=== PATIENT | female | born 1995 | race Caucasian/White ===

== ENCOUNTER 2022-08-31 16:35 | Outpatient (CLI) | payer BC, SELFPAY ==
[2022-09-07 20:53] LABS: Progesterone 9.7 ng/mL (***)
== END 2022-08-31 16:36 | disposition home or self-care (01) ==
PROVIDERS: PCP Pediatrics; Visit Provider Obstetrics & Gynecology
DX: O20.0 Threatened abortion (principal); Z3A.00 Weeks of gestation of pregnancy not specified
CPT/HCPCS: 36415; 84144; 84702; 85461

== ENCOUNTER 2022-09-02 11:12 | Outpatient (CLI) | payer BC, SELFPAY | END 2022-09-02 11:13 | disposition home or self-care (01) | LOC: ANHLAB 11:14 | PROVIDERS: PCP Internal Medicine; Visit Provider Obstetrics & Gynecology | DX: O20.0 Threatened abortion (principal) | CPT/HCPCS: 36415; 84702 ==

== ENCOUNTER 2022-09-07 06:44 | Emergency (ER) | payer BC, SELFPAY ==
--- NOTE | ~2022-09-07 | US_ITS ---
EXAMINATION: US OB <= 14 weeks fetus DATE: 09/07/2022 08:52 INDICATION: Vaginal bleeding and cramping TECHNIQUE: Real-time transabdominal and transvaginal obstetric ultrasound. FINDINGS: No prior studies for comparison. The uterus measures 8.6 x 4.1 x 5 cm. There is an intrauterine gestational sac, with pole ident ified. The crown rump length measures 0.58 cm, which correlates with a estimated gestational age of 6 weeks 3 days. heart tones are identified measuring 113 BPM. There is a left ovarian cyst me asuring 4.4 x 3.7 x 3.9 cm. IMPRESSION: 1. SL IUP with an EGA of 6 weeks, 3 days (EDC by current ultrasound of 04/30/2023). 2: Left ovarian cyst measuring 4.4 cm. Reviewed, dictated and finalized at location B. IMPRESSION: 1. SL IUP with an EGA of 6 weeks, 3 days (EDC by current ultrasound of 3). 2: Left ovarian cyst measuring 4.4 cm.
[2022-09-07 06:53] VITALS: BP 110/76; PULSE 77; RESP 16; TEMP 36.4; O2SAT 100
--- NOTE | 2022-09-07 07:42 | ED.FEMALEGU ---
HPI - Female Genitourinary General Chief complaint: Vaginal Bleeding Stated complaint: /vaginal bleeding Time Seen by Provider: 09/07/22 07:41 Source: patient Mode of arrival: ambulatory Limitations: no limitations History of Present Illness HPI Narrative: 26 years old white female one 0%0 woke up this morning at 5 AM with heavy vaginal bleeding with lower abdominal cramps. She denies any fever, chills, nausea, vomiting. Also denies any lightheadedness or dizziness Related Data Home Medications Medication Instructions Recorded Confirmed loratadine 10 mg tablet (Claritin) 10 mg PO DAILY 09/07/22 09/07/22 vits no.126-ferrous fum tablet 09/07/22 28 mg iron-folic acid 800 mcg tablet (Classic ) Allergies Allergy/AdvReac Type Severity Reaction Status Date / Time No Known Allergies Allergy Verified 09/07/22 07:55 Review of Systems Review of Systems: All systems reviewed & are unremarkable except as noted in HPI and below PMFSH Social History Social History Smoking status: Smoker, status unknown Alcohol intake: never Exam Narrative: General appearance: Well-developed, well-nourished Skin: Normal color Head: Normocephalic, nontraumatic Eyes: Clear conjunctiva ENT: Oropharynx normal, ears normal, nose normal Neck: Supple, nontender Chest and respiratory: Airway patent, no respiratory distress, no accessory muscle use Heart: Regular rate/rhythm Abdomen: Soft, mild diffuse tenderness, no organomegaly, quiet bowel sounds Vascular: Normal peripheral pulses, normal capillary refill. 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 Martinez Date: 09/07/22 Time: 10:07 Vital Signs Vital signs: Vital Signs Temperature 36.4 C L 09/07/22 06:53 Pulse Rate 77 09/07/22 06:53 Respiratory Rate 16 09/07/22 06:53 Blood Pressure 110/76 09/07/22 06:53 Pulse Oximetry 100 09/07/22 06:53 Oxygen Delivery Room Air 09/07/22 06:53 Temperature 36.4 C L 09/07/22 06:53 Pulse Rate 75 09/07/22 07:59 Respiratory Rate 16 09/07/22 06:53 Blood Pressure 115/78 09/07/22 07:59 Pulse Oximetry 100 09/07/22 06:53 Oxygen Delivery Room Air 09/07/22 06:53 MDM - Female Genitourinary Differential Diagnosis Differential diagnosis: Likely other (Threatened , complete , incomplete ) Lab Data Result diagrams: 09/07/22 07:51 Labs: Lab Results 09/07/22 09/07/22 Range/Units 07:51 07:51 WBC 6.2 (4.5-10.0) K/mm3 RBC 4.50 (4.2-5.4) M/mm3 Hgb 13.6 (12.0-15.0) g/dL Hct 40.2 (37.0-47.0) % MCV 89.3 (80-100) fl MCH 30.2 (26-34) pg MCHC 33.8 (32-36) g/dl RDW 11.9 (11.5-14.5) % Plt Count 191 (150-375) k/mm3 MPV 10.2 (7.4-10.4) fl Immature Gran % (Auto) 0.2 (0-0.5) % Neut % (Auto) 49.4 (45.5-73.1) % Lymph % (Auto) 38.1 (18.3-44.2) % [place] % (Auto) 9.6 H (2.6-8.5) % Eos % (Auto) 2.1 (0-4.4) % Baso % (Auto) 0.6 (0.2-1.2) % Lymph # (Auto) 2.35 (0.9-3.2) K/mm3 [place] # (Auto) 0.6 (0.1-0.6) K/mm3 Eos # (Auto) 0.1 (0-0.3) K/mm3 Baso # (Auto) 0.0 (0.0-0.1) K/mm3 Abs Immat Gran (auto) 0.01 (0.00-0.031) K/mm3 Absolute Neuts (auto) 3.1 (1.3-6.7) K/mm3 Absolute Nu
[2022-09-07 07:58] VITALS: BP 100/65; PULSE 59
[2022-09-07 07:59] VITALS: BP 104/71; BP 115/78; PULSE 66; PULSE 75
[2022-09-07] MEDS: SODIUM CHLORIDE 0.9% IV 1,000 ML 999 ML IV CONT (08:00)
[2022-09-07 08:01] LABS: Basophils Percent Auto 0.6 % (0.2-1.2); Eosinophils Absolute Auto 0.1 K/mm3 (0-0.3); Eosinophils Percent Auto 2.1 % (0-4.4); Hematocrit 40.2 % (37.0-47.0); Hemoglobin 13.6 g/dL (12.0-15.0); Immature Granulocyte Absolute 0.01 K/mm3 (0.00-0.031); Immature Granulocyte Percent A 0.2 % (0-0.5); Lymphocytes Absolute Auto 2.35 K/mm3 (0.9-3.2); Lymphocytes Percent Auto 38.1 % (18.3-44.2); Mean Corpuscular HGB Conc 33.8 g/dl (32-36); Mean Corpuscular Hemoglobin 30.2 pg (26-34); Mean Corpuscular Volume 89.3 fl (80-100); Mean Platelet Volume 10.2 fl (7.4-10.4); Monocytes Absolute Auto 0.6 K/mm3 (0.1-0.6); Monocytes Percent Auto 9.6 % (2.6-8.5); Neutrophils Absolute Auto 3.1 K/mm3 (1.3-6.7); Neutrophils Percent Auto 49.4 % (45.5-73.1); Platelet Count Result 191 k/mm3 (150-375); Red Cell Distribution Width 11.9 % (11.5-14.5); White Blood Count 6.2 K/mm3 (4.5-10.0)
[2022-09-07 10:20] VITALS: BP 126/73; PULSE 70; RESP 16; O2SAT 99
== END 2022-09-07 10:20 | disposition home or self-care (01) ==
PROVIDERS: Emergency Medicine; Emergency Provider Emergency Medicine; PCP Internal Medicine
DX: O20.0 Threatened abortion (principal); O34.81 Maternal care for other abnormalities of pelvic organs, first trimester; N83.202 Unspecified ovarian cyst, left side; Z3A.01 Less than 8 weeks gestation of pregnancy
CPT/HCPCS: 36415; 76801; 84702; 85025; 85461; 86850; 86900; 86901; 96360; 99284; J7030

== ENCOUNTER 2023-04-12 19:48 | Observation (INO) | payer BC, SELFPAY ==
[2023-04-12 21:30] VITALS: BMI 36.1
--- NOTE | 2023-04-12 21:30 | OBADM ---
This patient, Monika Weaver, admitted to the OB room Labor/Delivery/Recovery 106 for observation. Patient/family oriented to hospital policies and general routines including ID bracelet, bed and alarms, visiting hours, pain management, procedures, bathroom and other care routines, personal items, smoking policy, room service/diet, and visiting hours. Patient/Family are encouraged to report perceived risks to care and to ask questions if they do not understand what they are told or what they should do.
--- NOTE | 2023-05-10 22:16 | PM.OBTRLD ---
OB - Triage/Final Diagnosis Visit Information Comments/Additional reasons for admission: I have assessed the risk for this patient, Monika Mcpherson Meg, and determined that she would benefit from observation care. Final Diagnosis (1) False labor: Code(s): O47.9 - False labor, unspecified Status: Acute
== END 2023-04-12 21:40 | disposition home or self-care (01) ==
PROVIDERS: Admitting Provider Obstetrics & Gynecology; PCP Physician Assistant Medical; Visit Provider Obstetrics & Gynecology
DX: O47.1 False labor at or after 37 completed weeks of gestation (principal); Z3A.37 37 weeks gestation of pregnancy
CPT/HCPCS: G0378; G0379

== ENCOUNTER 2023-04-22 01:14 | Inpatient (IN) | payer BC, SELFPAY ==
[2023-04-22] VITALS (63 sets, daily range): BP systolic 83–141; BP diastolic 50–102; PULSE 61–169; RESP 15–16; TEMP 36.6–38; O2SAT 97–100; BMI 36.7
--- NOTE | 2023-04-22 05:58 | LDADM ---
This patient, Monika Weaver, was admitted to Labor/Delivery/Recovery 105 on 04/22/23 at 01:14. Plans for labor, pain management and were discussed with patient. Patient/family oriented to hospital policies and general routines including ID bracelet, bed and alarms, visiting hours, pain management, procedures, bathroom and other care routines, personal items, smoking policy, room service/diet and guest tray routines, security routines, and visiting hours. Patient/Family are encouraged to report perceived risks to care and to ask questions if they do not understand what they are told or what they should do. See OBIX for further documentation.
[2023-04-22 06:17] LABS: Basophils Percent Auto 0.3 % (0.2-1.2); Eosinophils Absolute Auto 0.3 K/mm3 (0-0.3); Eosinophils Percent Auto 2.5 % (0-4.4); Hemoglobin 11.4 g/dL (12.0-15.0); Immature Granulocyte Absolute 0.08 K/mm3 (0.00-0.031); Immature Granulocyte Percent A 0.7 % (0-0.5); Lymphocytes Absolute Auto 3.43 K/mm3 (0.9-3.2); Lymphocytes Percent Auto 28.5 % (18.3-44.2); Mean Corpuscular HGB Conc 33.5 g/dl (32-36); Mean Corpuscular Hemoglobin 30.7 pg (26-34); Mean Corpuscular Volume 91.6 fl (80-100); Mean Platelet Volume 10.9 fl (7.4-10.4); Monocytes Absolute Auto 1.1 K/mm3 (0.1-0.6); Monocytes Percent Auto 8.7 % (2.6-8.5); Neutrophils Absolute Auto 7.1 K/mm3 (1.3-6.7); Neutrophils Percent Auto 59.3 % (45.5-73.1); Platelet Count Result 154 k/mm3 (150-375); Red Blood Count 3.71 M/mm3 (4.2-5.4); Red Cell Distribution Width 13.1 % (11.5-14.5)
[2023-04-22] MEDS: OXYTOCIN 30 UNITS/NS 500 ML 30 UNITS/500 ML BAG IV CONT (07:04)
[2023-04-22] MEDS: LACTATED RINGERS 1,000 ML 125 ML IV CONT ×3 (07:04→16:09)
--- NOTE | 2023-04-22 11:47 | PM.IMHP ---
H&P: HPI History of Present Illness Date/Time: 04/22/23 11:47 Chief Complaint: labor Narrative: Venus is a 27yo G1 who presented at 38.6 with contractions that changed her cervix from 4 to 5 and vaginal bleeding more than bloody show. Contractions did slow down and pitocin augmentation was started. GBS neg. otherwise uncomplicated. Review of Systems Review of Systems: All systems reviewed & are unremarkable except as noted in HPI and below PMFSH Family History Family History (Updated 11/27/22 @ 11:46 by Gale Vanessa MA) Mother No problems noted. Father No problems noted. Social History Social History (Updated 11/27/22 @ 12:20 by Chetna Joiner PA-C) Smoking packs per day: 1 Smoking cigarettes per day: 20.0 Smoking status: Former smoker Tobacco type: cigarettes Second hand tobacco smoke exposure: No Alcohol intake: never Substance use: never Substance use type: does not use Lack of Transportation: No Lack of Food: Never True Current Housing: I Have Housing Concerned About Future Housing: No Difficulty Paying Gas/Electric Bills: No Difficulty Paying for Meds: No Currently Unemployed: No Education: Bachelor's Degree Difficulty w/ Childcare or Family Care: No Living arrangements: with family Occupation/Education: occupation Gender identity (if verbalized by the patient): Female Spiritual care concerns: No Meds Home Medications and Allergies Home Medications Medication Instructions Recorded Confirmed Type loratadine 10 mg tablet (Claritin) 10 mg PO DAILY 09/07/22 04/22/23 History vits no.126-ferrous fum 1 tablet PO DAILY 09/07/22 04/22/23 History 28 mg iron-folic acid 800 mcg tablet (Classic ) sertraline 50 mg tablet 25 mg PO DAILY 11/27/22 04/22/23 History albuterol sulfate 90 mcg/actuation 2 puff inhalation QID PRN Wheezing 04/02/23 04/02/23 History aerosol inhaler valacyclovir 1 gram tablet 1,000 mg PO DAILY 04/02/23 04/02/23 History (Valtrex) Allergies Allergy/AdvReac Type Severity Reaction Status Date / Time No Known Allergies Allergy Verified 11/27/22 11:41 Vital Signs Vital Signs - 24 hr 04/22/23 06:41 04/22/23 07:00 04/22/23 07:30 Temperature 98.3 F Pulse Rate 76 80 78 Blood Pressure 105/72 104/74 107/73 Oxygen Delivery 04/22/23 08:00 04/22/23 08:30 04/22/23 09:01 Temperature Pulse Rate 74 74 113 H Blood Pressure 107/66 101/61 83/65 L Oxygen Delivery 04/22/23 10:14 04/22/23 10:19 04/22/23 11:46 Temperature 98.3 F Pulse Rate 83 70 Blood Pressure 137/81 113/73 Oxygen Delivery 04/22/23 06:06 Temperature Pulse Rate Blood Pressure Oxygen Delivery Room Air Exam Const: General: no acute distress Resp: Effort & Inspection: normal respiratory effort Auscultation: clear to auscultation bilaterally Cardio: Rate: regular rate Rhythm: regular rhythm GI: GI Palp: Yes Soft to palpation Extrem: General: normal to inspection H&P: Results Labs Labs: Short CBC 04/22/23 Range/Units 05:53 WBC 12.0 H (4.5-10.0) K/mm3 Hgb 11.4 L (12.0-15.0) g/dL Hct 34.0 L (37.0-47.0) % Plt Count 154 (150-375) k/mm3 Assessment and Plan Assessment and plan (1) Third trimester bleeding: Code(s): O46.93 - Antepartum hemorrhage, unspecified, third trimester Status: Acute Plan GBS neg FHT category 1 pitocin as needed /2 AROM clear with some clots, no hemorrhage, will monitor
[2023-04-22] MEDS: fentaNYL CITRATE INJ (*CRX) 100 MCG/2 ML VIAL 50 MCG IV PUSH (13:08)
--- NOTE | 2023-04-22 14:26 | WPDANESEPP ---
Anes - Eval Pre Procedure Procedure: labor epidural Date/Time: 04/22/23 14:26 Preop Diagnosis: labor pain Pre Op Diagnosis: Contractions Patient Data Age: 27 Gender: F Height: 1.63 m Weight: 97 kg Last Vital Signs Temp 36.7 C 04/22/23 13:00 Pulse 78 04/22/23 14:06 BP 125/63 04/22/23 14:06 O2 Del Method Room Air 04/22/23 06:06 Allergies Allergy/AdvReac Type Severity Reaction Status Date / Time No Known Allergies Allergy Verified 11/27/22 11:41 Home Medications Medication Instructions Recorded Confirmed Type loratadine 10 mg tablet (Claritin) 10 mg PO DAILY 09/07/22 04/22/23 History vits no.126-ferrous fum 1 tablet PO DAILY 09/07/22 04/22/23 History 28 mg iron-folic acid 800 mcg tablet (Classic ) sertraline 50 mg tablet 25 mg PO DAILY 11/27/22 04/22/23 History albuterol sulfate 90 mcg/actuation 2 puff inhalation QID PRN Wheezing 04/02/23 04/02/23 History aerosol inhaler valacyclovir 1 gram tablet 1,000 mg PO DAILY 04/02/23 04/02/23 History (Valtrex) Laboratory Tests 04/22/23 05:53 WBC 12.0 H K/mm3 (4.5-10.0) RBC 3.71 L M/mm3 (4.2-5.4) Hgb 11.4 L g/dL (12.0-15.0) Hct 34.0 L % (37.0-47.0) MCV 91.6 fl (80-100) MCH 30.7 pg (26-34) MCHC 33.5 g/dl (32-36) RDW 13.1 % (11.5-14.5) Plt Count 154 k/mm3 (150-375) MPV 10.9 H fl (7.4-10.4) Immature Gran % (Auto) 0.7 H % (0-0.5) Neut % (Auto) 59.3 % (45.5-73.1) Lymph % (Auto) 28.5 % (18.3-44.2) [place] % (Auto) 8.7 H % (2.6-8.5) Eos % (Auto) 2.5 % (0-4.4) Baso % (Auto) 0.3 % (0.2-1.2) Lymph # (Auto) 3.43 H K/mm3 (0.9-3.2) [place] # (Auto) 1.1 H K/mm3 (0.1-0.6) Eos # (Auto) 0.3 K/mm3 (0-0.3) Baso # (Auto) 0.0 K/mm3 (0.0-0.1) Abs Immat Gran (auto) 0.08 H K/mm3 (0.00-0.031) Absolute Neuts (auto) 7.1 H K/mm3 (1.3-6.7) Absolute Nucleated RBC 0.0 K/mm3 (0.0-0.012) Nucleated RBC % 0.0 % (0.0-0.2) RPR Pending Blood Type B Positive Antibody Screen Negative Patient hx anesthesia problems: none Family hx anesthesia problems: none Results Review: All pre-operative results and documents have been reviewed as part of the pre-operative evaluation. [facility] Family History Family History Mother No problems noted. Father No problems noted. Social History Social History Smoking packs per day: 1 Smoking cigarettes per day: 20.0 Smoking status: Former smoker Tobacco type: cigarettes Second hand tobacco smoke exposure: No Alcohol intake: never Substance use: never Substance use type: does not use Lack of Transportation: No Lack of Food: Never True Current Housing: I Have Housing Concerned About Future Housing: No Difficulty Paying Gas/Electric Bills: No Difficulty Paying for Meds: No Currently Unemployed: No Education: Bachelor's Degree Difficulty w/ Childcare or Family Care: No Living arrangements: with family Occupation/Education: occupation Gender identity (if verbalized by the patient): Female Spiritual care concerns: No Exam Day of Procedure 04/22/23 14:26 Patient weight: normal Heart: regular rate and rhythm Lungs: clear to auscultation and normal air movement Airway: Mallampati scale Neurological: alert and oriented
[2023-04-22] MEDS: ONDANSETRON INJ 4 MG/2 ML VIAL IV PUSH (15:18)
[2023-04-22] MEDS: METHYLERGONOVINE MALEATE 0.2 MG/ML VIAL IM (17:01)
[2023-04-22] MEDS: miSOPROStol 200 MCG TABLET 800 MCG RECTAL (17:10)
--- NOTE | 2023-04-22 17:12 | PM.OBPRVD ---
OB - Delivery Note Procedure Delivery date: 04/22/23 Procedure: Delivery augmentation: Rupture of Membranes and Pitocin Delivery monitor: External FHT and External Uterine Route of delivery: Laceration Description: Perineal - 2nd Degree Delivery repair: vicryl Quantitative Blood Loss (ml): 480 Anesthesia type: Epidural Disposition: Floor Complications: atony of lower uterine segment immediately after delivery, treated with methergine and cytotec. Narrative: With adequate expulsive efforts by the mother, the baby's head was delivered OA. The baby's anterior shoulder was delivered under the pubic symphysis without difficulty. The posterior shoulder and the rest of the baby delivered without difficulty. The infant was placed on the mothers chest and suctioned and stimulated. The cord was clamped and cut after 30 seconds. Mother and baby both stable. [place] Baby Date of : 04/22/23 Time of : 16:44 Weeks of gestation at delivery: 39 Infant gender: Male Weight (pounds): 7 Weight (ounces): 2 presentation: vertex Placenta delivery description: Spontaneous Cord Vessel Description: 3 Vessels, Nuchal Cord and Delayed Cord Clamping score one minute: 8 score five minutes: 9
[2023-04-22] MEDS: OXYTOCIN 30 UNITS/NS 500 ML 30 UNITS/500 ML BAG 125 UNITS IV CONT (17:16)
[2023-04-22] MEDS: WITCH HAZEL 40 PADS 1 PAD TOPICAL (18:14)
[2023-04-22] MEDS: IBUPROFEN 600 MG TABLET PO (18:14)
[2023-04-22] MEDS: BENZOCAINE 20% AER SPR (*SP) 56 GM CAN 1 SPRAY TOPICAL (18:14)
[2023-04-22] MEDS: ACETAMINOPHEN 325 MG TABLET 650 MG PO (19:44)
[2023-04-23 04:00] VITALS: BP 91/51; PULSE 90; RESP 16; TEMP 37.3; O2SAT 100
[2023-04-23 05:10] LABS: Hematocrit 28.2 % (37.0-47.0); Hemoglobin 9.1 g/dL (12.0-15.0)
[2023-04-23 07:35] VITALS: BP 100/63; PULSE 82; RESP 16; TEMP 37; O2SAT 100
--- NOTE | 2023-04-23 08:03 | PM.OBPNVD ---
OB - PN: Subj Subjective Date/time seen: 04/23/23 08:03 Patient comments: no complaints and pain well controlled baby status: doing well and nursing well [place] feeding status: exclusively breast feeding OB - PN: Obj Data Labs 04/23/23 04:16 Labs: Laboratory Results - last 24 hr 04/23/23 04:16 Hgb 9.1 L Hct 28.2 L OB - PN A/P Plan day: 1 Plan: routine care Time Spent With Patient Time: Total time spent is greater than 50% in coordination of care (as documented) at patient's floor/unit and/or counseling patient: Time with patient: less than 15 minutes Exam Narrative: NAD abdomen soft, nontender, fundus firm below the umbilicus Extremities nontender, 1+ edema
[2023-04-23] MEDS: DOCUSATE SODIUM 100 MG CAPSULE PO ×2 (11:00→16:15)
[2023-04-23] MEDS: IBUPROFEN 600 MG TABLET PO ×2 (11:00→16:15)
[2023-04-23] MEDS: MULTIVIT/MIN/PREN/FOL AC/IRON TABLET 1 TAB PO ×2 (11:00→16:15)
[2023-04-23] MEDS: SERTRALINE HCL 25 MG TABLET PO (11:00)
[2023-04-23] MEDS: POLYSACCHARIDE IRON COMPLEX 150 MG CAPSULE PO ×2 (11:00→16:15)
--- NOTE | 2023-04-23 12:14 | PC.NURSE ---
[id number] Introductions were made, then consulted with patient to assess needs related to . Mother led the conversation with her?plans to feed?her infant and the?experience so far. Parents state that had a circumcision this morning and is sleepy and not waking to breastfeed. Infant has not breastfed since 0400. RN offers assistance and mother receives assistance at this time. Mother works well with her infant with encouragement and education. Encouraged understanding of the benefits of skin to skin (demonstrating unwrapping infant and placing upright on her chest), stimulating with massage touch, changing positions to encourage wakefulness, how to watch for early feeding cues, responsive feeding, feeding on demand (aiming for 8-12 times in 24 hours, about every 2-3 hours), milk production, hand expression, building/maintaining a milk supply, duration of feeding, signs of adequate intake/output and how to record on the feeding sheet. sounds congested with crying. demonstrated feeding cues, however; went to sleep when mother positioned him in cross cradle. For the most part, Infant demonstrates sleepiness and reluctance at this time. Mother states infant has breastfed earlier just fine. Discussed the output as being very appropriate, preventing too much of an increase in jaundice, protecting against too much weight loss, and keeping blood sugar appropriate. Mother was able to hand express 8mls of colostrum from her breast. Infant was rewarded with 5mls of colostrum with a syringe when he suckled on mothers finger. Reviewed good handwashing when or touching the breast/nipples to prevent infection. Resources used to facilitate learning were used with the visual handouts, QR codes, tool, mom and baby guide. Parents voiced understanding of skin to skin, stimulating with massage touch, responsive feedings, hand expressed colostrum, talking to to encourage if it has been 2 -2.5 hours since the start of the last , to call if does not latch, or if there is discomfort with . Resources provided for inpatient/outpatient with office number on the feeding sheet, name written on the white board, and the mom/baby guide. Parents voiced understanding of information, demonstrated learning and will call if there is a request for assistance. Reported to the primary RN.
[2023-04-23 12:31] VITALS: BP 108/63; PULSE 84; RESP 16; TEMP 36.6; O2SAT 99
[2023-04-23 16:55] LABS: Rapid Plasma Reagin Non-Reactive (NonReactive)
[2023-04-23 20:25] VITALS: BP 102/58; PULSE 81; RESP 16; TEMP 37.4; O2SAT 99
[2023-04-23] MEDS: ACETAMINOPHEN 325 MG TABLET 650 MG PO (21:02)
[2023-04-24] MEDS: IBUPROFEN 600 MG TABLET PO (04:55)
--- NOTE | 2023-04-24 07:03 | P.PNOB_ITS ---
OB - PN: Subj Subjective Date/time seen: 04/24/23 07:03 Patient comments: no complaints and pain well controlled baby status: doing well and nursing well [place] feeding status: exclusively breast feeding Narrative: milk in, some engorgement. home today. OB - PN: Obj Data Labs 04/23/23 04:16 Labs: Laboratory Results - last 24 hr 04/22/23 05:53 RPR Non-reactive OB - PN A/P Assessment and Plan (1) , delivered: Code(s): O80 - Encounter for full-term uncomplicated delivery Status: Acute Plan day: 2 Plan: routine care and discharge home Time Spent With Patient Time: Total time spent is greater than 50% in coordination of care (as documented) at patient's floor/unit and/or counseling patient: Time with patient: less than 15 minutes Exam Narrative: NAD abdomen soft, nontender, fundus firm below the umbilicus Extremities nontender, 1+ edema
--- NOTE | 2023-04-24 07:17 | PM.OBDSVD ---
DS: Admitting Diagnosis Discharge Date 04/24/23 Admitting Diagnosis term IUP, labor, bleeding DS: Discharge Diagnosis Discharge Diagnosis (1) , delivered: Code(s): O80 - Encounter for full-term uncomplicated delivery Status: Acute OB - DS: Summary Hospital Course Hospital Course: Venus presented in labor with vaginal bleeding. She proceeded to have an uncomplicated vaginal delivery and course. She was discharged home in stable condition on PPD 2. OB Procedures : Ultrasound OB Procedures Intrapartum: Spontaneous Vag Delivery OB Procedures: : None Peripartum Data Delivery Method: Natural Vaginal complications: none Status at Discharge Functional status at discharge: independent ambulation Time Spent with Patient Time attestation: Total time spent providing and/or coordinating discharge services: Exam Narrative: NAD abdomen soft, appropriately tender Ext non tender, 1+ edema DS: Data Data Completed and Pending Labs on day of discharge: Labs from last 24 hours 04/22/23 05:53 RPR Non-reactive Discharge Plan Discharge Attending physician on discharge: Tricia Bro Discharging Clinician: Tricia Bro Anticipated Discharge Date/Time: 04/24/23 07:15 Patient Disposition: Home, Self-Care Activity: pelvic rest Diet: regular Patient Instructions: Antibiotic Form Stand Alone Forms: General Discharge Information Follow-up/Referrals: Tricia Bro MD [Physician] - 4 Weeks Discharge Medications: Continued sertraline 50 mg tablet 25 mg PO DAILY Classic 28 mg iron- 800 mcg Tablet 1 tablet PO DAILY albuterol sulfate 90 mcg/actuation Hfa Aerosol Inhaler 2 puff INHALATION QID PRN (Reason: Wheezing) Discontinued loratadine [Claritin] 10 mg Tablet 10 mg PO DAILY valacyclovir [Valtrex] 1 gram Tablet 1,000 mg PO DAILY Date of admission: 04/22/23 01:14 Primary Care Provider: Chetna Joiner I. Admitting Provider: Tricia Bro Attending physician on admission: Tricia Bro Condition: Stable
[2023-04-24 07:40] VITALS: BP 95/54; PULSE 80; RESP 16; TEMP 36.4; O2SAT 97
[2023-04-24] MEDS: POLYSACCHARIDE IRON COMPLEX 150 MG CAPSULE PO (08:00)
[2023-04-24] MEDS: MULTIVIT/MIN/PREN/FOL AC/IRON TABLET 1 TAB PO (08:01)
[2023-04-24] MEDS: DOCUSATE SODIUM 100 MG CAPSULE PO (08:01)
== END 2023-04-24 10:53 | disposition home or self-care (01) | DRG 807 ==
LOC: ANHLDR 05:26 → ANHOB2 19:15
PROVIDERS: Admitting Provider Obstetrics & Gynecology; PCP Physician Assistant Medical; Visit Provider Obstetrics & Gynecology
DX: O43.123 Velamentous insertion of umbilical cord, third trimester (principal); Z37.0 Single live birth; O70.1 Second degree perineal laceration during delivery; O69.81X0 Labor and delivery complicated by cord around neck, without compression, not applicable or unspecified; Z3A.38 38 weeks gestation of pregnancy; Z87.891 Personal history of nicotine dependence
CPT/HCPCS: 36415; 85014; 85018; 85025; 86592; 86850; 86900; 86901; A9270; J2210; J2405; J2590; J2795; J3010; J7120

== ENCOUNTER 2025-03-18 01:38 | Day surgery (SDC) | payer OTHER, SELFPAY ==
[2025-03-04 14:50] VITALS: BMI 31.9
--- OUTSIDE RECORDS SUMMARY | 2025-03-18 01:41 | XMS_ITS | Encounter Summary ---
Author Organization [facility] Address [address] [place] [address] Care Team Providers Care Fitting Room Associate Name Role Phone Unavailable Primary Care Provider Unavailabl e Encounter Details Date Type Department Care Team (Late st Contact Info) Description 12/14/2023 Lab Requisition [facility] - DermPath Lab [address] [facility] [place] [address] Dana Banks MD [address] [facility] [address] [place] [address] Social History Tobacco Use Types Packs/Day Years Used Date Smoking Tobacco: Never Assessed Comments Unknown Sex and Gender Information Value Date Recorded Sex Assigned at Not on file Legal Sex Female 5:38 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 Gender Identity Not on file Sexual Orientation Not on file documented as of this encounter Plan of Treatment Not on file documented as of this encounter Procedures Procedure Name Priority Date/Time Associated Diagnosis Comments DERMATOPATHOLOGY Routine 12/14/2023 11:1 7 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 documented in this encounter Results * DERMATOPATHOLOGY (12/14/2023 11:17 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) Case Report Dermatopathology Report Case: [id number] Authorizing Provider: Dana Banks MD Collected: 12/14/2023 11:17 AM Ordering Location: [facility] DermPath Lab Received: 12/17/2023 03:05 PM Pathologist: Chelsea Crawford MD Specimen: Skin, mid FH 4:43 PM WINDING OPERATOR DERMATOPATHOLOGY LABORATORY Final Diagnosis Specimen A. SKIN, mid FH: HYPERPLASTIC (HYPERTROPHIC) ACTINIC KERATOSIS; EXTENDING TO THE BASE OF THE SPECIMEN (L57.0) (see microscopic description and comment) 4:43 PM WINDING OPERATOR DERMATOPATHOLOGY LABORATORY Clinical History BVK vs SCC Growing 4 4:43 PM [facility] DERMATOPATHOLOGY LABORATORY Gross Description Specimen A: Received is one formalin filled container labeled with the patient's name and designated mid FH. The specimen consists of a shave biopsy measuring 4x4x5 mm. Jar 0. 4 4:43 PM [facility] DERMATOPATHOLOGY LABORATORY Microscopic Description Specimen A. SKIN, mid FH: There is hyperkeratosis alternating with parakeratosis. There is epidermal hyperplasia with disorderly maturation of keratinocytes with nuclear pleomorphism confined to the lower half of the epidermis. Ki-67 immunohistochemical stain reveals a elevated proliferative index in the lower epidermis. The dermis shows a band-like, chronic inflammatory infiltrate with occasional apoptotic keratinocytes and some basal vacuolar alteration. This process extends to the base of the specimen. COMMENT: A squamous cell carcinoma cannot be ruled out. 4:43 PM [facility] DERMATOPATHOLOGY LABORATORY Disclaimer An external and internal positive and negative controls are appropriate for the histochemical, immunohistochemical and immunofluorescence stain(s) in this case (if any), except where stated explicitly. The performance characteristics of the stain(s) cited in this report were developed and its performance characteristic determined by the Dermatopathology Laboratory at [facility], directed by Dr. Zaria Estrella. These tests need not be, and therefore are not, approved by the [place] Food and Drug Administration. The tests are used for clinical purposes. Billing Codes Specimen Charges Stain Charges 49172 1 40175 1 4 4:43 PM WINDING OPERATOR DERMATOPATHOLOGY LABORATORY Embedded Images 4 4:43 PM [facility] DERMATOPATHOLOGY LABORATORY Pathology/Cytolo gy TISSUE SPECIMEN FROM SKIN / Unknown 12/14/2023 11:17 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 12/17/2023 3:05 PM WINDING OPERATOR Dana Banks MD LAB - PATHOLOGY/CYTOLOGY OR DERABLES Final Result DERMATOPATHOLOGY LABORATORY [facility] - Department of Dermatology [address], [address] [phone] documented in this encounter Visit Diagnoses Not on filedocumented in this encounter
--- OUTSIDE RECORDS SUMMARY | 2025-03-18 01:41 | XMS_ITS | Data Portability ---
Author Organization [facility] Address [address] [place] [address] Care Team Providers Care Engagement Director Name Role Phone KENNY PAPPAS Primary Care Provider [phone] Assessment Encounter Date Assessment Date Assessment LastModified by Organization Details LastModified Time 05/22/2023 05/22/2023 Normal exam May resume normal activities contraceptive plan-- POP FU for WWE 3 mos [email or web address] Not available 05/22/2023 15:12:22 10/01/2023 10/01/2023 Annual gynecological exam performed. Patient will come back in a year unless there are new symptoms. [email or web address] Not available 10/01/2023 09:11:03 12/04/2024 12/04/2024 Annual gynecological exam performed. Patient will come back in a year unless there are new symptoms. [email or web address] Not available 12/04/2024 11:40:40 Plan of Treatment Reminders Order Date Submit Date Provider Last Modified By Organization Details Last Modified Time Details Appointments None recorded. Lab hbcab (hepatitis B core Ab) igm, serum 2024 025 [facility] (Lab), [address], [place], [address], 14:16:32 HBsAg (hepatitis B surface Ag), serum 2024 025 [facility] (Lab), [address], [place], [address], 5 14:16:32 hepatitis C virus Ab, serum 2024 025 [facility] (Lab), [address], [place], [address], 5 14:16:32 HIV 1+2 AB + HIV 1 p24 Ag, qualitative immunoassay , serum 2024 025 [facility] (Lab), [address], [place], [address], 5 14:16:31 RPR (rapid plasma reagin), serum 2024 025 [facility] (Lab), [address], [place], [address], 5 14:16:33 Referral gastroenter ologist referral [address] [facility], [address], [id number], [place], [address], 5 11:23:10 Procedures None recorded. Surgeries None recorded. Imaging None recorded. Medication Orders Microgestin 1.5/30 (21) 1.5 mg-30 mcg tablet 2024 025 [facility] 435, [address], [address], 5 12:17:16 norethindro ne (contracept sharmaine) 0.35 mg tablet 2022 023 [facility], [address], [address], 5 13:32:56 norethindro ne (contracept sharmaine) 0.35 mg tablet 2022 023 [facility], [address], [address], 5 13:32:56 Patient TargetsNo targets recorded. Patient InstructionsNo instructions recorded. 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 Referring Physician: Maria Eugenia Gregorio, BABY SITTER, Encounter Date: 12/04/2024 Results Created Date Observation Date Name Description Value Unit Range Abnormal Flag Note LastModifiedBy Organization Detail LastModifiedTime 10/01/2010/01/2023 IMAGE GUIDE D PAP AND HPV REGAR DLESS image guided Pap, HPV regardless of Pap result SEE RESULT S BELOW CASE REPOR T: Cytol ogy Gynec ologi walt Repor t Case: [id number] Autho rikeri g Provi caroline: Maria Eugenia Gregorio, MISSY Mattson cted: 10/01 1606 Order ing Locat ion: [place] Patho logy Recei stephanie: 10/02 0624 First Scree n: DeLuc a, Anabella, CT Rescr een: Vi Kong Speci men: Scree massimo Pap - Image d, Cervi x STATE MENT OF ADEQU ACY: Satis facto ry for evalu ation Trans forma tion zone compo nent prese nt FINAL DIAGN OSIS: Negat sharmaine for Intra epith elial Yrn dean or Jonathan chapa (NIL) . Morteza cuello brad d by Vi Kong on 10/05 at 11:06 AM ----- ----- ----- ----- ----- ----- ----- ----- ----- ----- ----- ----- ----- ----- ----- ----- ----- ---- HPV RESUL TS: HPV mRNA E6/E7 : No HPV mRNA Detec robson NOTE: This high risk HPV mRNA assay detec ts fourt een high- risk HPV types (16, 18, 31, 33, 35, 39, 45, 51, 52, 56, 58, 59, 66, 68) witho ut diffe renti ation . COMME NT: This speci men was revie wed by a Cytot echno logis t and/o r Patho logis t (as indic ated in this repor t) after evalu ation using the Thinp rep Imagi ng Syste m. CLINI WALT INFOR MATIO N: Menst rual Statu s: LMP (if appli cable ): Clini walt Histo ry/Pr eviou s Pap: Type of Neopl lloyd (if appli cable ): Signi fican t Clini walt Findi ngs: Other Histo ry: Hormo yessy (if appli cable ): PAP EDUCA SKYLER L NOTE: The Pap Test is a scree massimo test with an inher ent false negat sharmaine rate. Liqui d-bas ed sampl ing may decre ase, but will not elimi dipti, false negat sharmaine resul ts. A negat sharmaine resul t does not precl ude the prese nce and/o r devel opmen t of disea se, since the prese nce of abnor mal cells in the sampl e depen ds on the locat ion of the lesio n and sampl ing techn ique. Judie nued regul ar scree massimo is the best metho d of cance r preve ntion . If repor robson cytol ogic findi ng do not corre late with physi walt and/o r histo rical findi ngs, furth er inves tigat ion is recom addie d, as clini rodger warra nted. Not Available [facility] (Lab) [address], [place], [address], 10/05/2023 12:09:37 12/04/19 25 12/04/2024 HIV 1/2 ANTIG EN/AN TIBOD Y, REFLE X CONFI RMATI ON HIV antigen/anti body Nonrea ctive nonrea ctive HIV-1 antig en and HIV-1 /HIV- 2 antib odies were not detec robson. No labor atory evide nce of HIV infec tion. Not Available [facility] (Lab) [address], [place], [address], 12/05/2024 14:16:31 12/04/1912/04/2024 HEPAT ITIS C ANTIB BUZZ SCREE N, REFLE X TO CONFI RMATI ON hepatitis C antibody Non-re active non-re active Antib odies to HCV Not Detec robson, does not exclu de the possi bilit y of expos ure to HCV. Not Available [facility] (Lab) [address], [place], [address], 12/05/2024 14:16:32 12/04/19 25 12/04/2024 HEPAT ITIS B SURFA CE ANTIG EN hepatitis B surface antigen Non-re active non-re active This assay was perfo rmed using [employer] ratio n reage nts and test kits. Value s obtai chloe with other assay metho ds or kits canno t be used inter gregg eably . Not Available [facility] (Lab) [address], [place], [address], 12/05/2024 14:16:32 12/04/19 25 12/04/2024 HEPAT ITIS B CORE, IGM hepatitis B core IgM antibody Non-re active non-re active IgM anti- HBc not detec robson. Does not exclu de the possi bilit y of expos ure to or infec tion with HBV. Not Available [facility] (Lab) [address], [place], [address], 12/05/2024 14:16:32 12/04/19 25 12/04/2024 RPR SCREE N, REFLE X TITER /CONF IRMAT ION RPR screen Nonrea ctive nonrea ctive Not Available [facility] (Lab) [address], [place], [address], 12/05/2024 14:16:33 12/04/19 25 12/04/2024 IMAGE GUIDE D PAP AND HPV REGAR DLESS image guided Pap, HPV regardless of Pap result SEE RESULT S BELOW CASE REPOR T: Cytol ogy Gynec ologi walt Repor t Case: [id number] Autho gabbie g Provi caroline: Maria Eugenia Gregorio, MISSY Colle cted: 12/04 1309 Order ing Locat ion: [place] Patho karina Espinosa stephanie: 12/05 1019 First Umm n: Codie Guerrero Speci men: Umm keys Pap - Image d, Cervi x STATE MENT OF ADEQU ACY: Satis facto ry for evalu ation Trans forma tion zone compo nent prese nt ----- ----- ----- ----- ----- ----- ----- ----- ----- ----- ----- ----- ----- ----- ----- ----- ----- ---- FINAL DIAGN OSIS: Negat sharmaine for Intra epith elial Yrn dean or Jonathan chapa (NIL) . Elect maranda cole by Codie kinsey on 2024 at 1437 ROUTER TENDER ----- ----- ----- ----- ----- ----- ----- ----- ----- ----- ----- ----- ----- ----- ----- ----- ----- ---- HPV RESUL TS: HPV mRNA E6/E7 : No HPV mRNA Detec robson NOTE: This high risk HPV mRNA assay detec ts fourt een high- risk HPV types (16, 18, 31, 33, 35, 39, 45, 51, 52, 56, 58, 59, 66, 68) witho ut diffe renti ation . COMME NT: This speci men was revie wed by a Cytot echno logis t and/o r Patho logis t (as indic ated in this repor t) after evalu ation using the Thinp rep Imagi ng Syste m. CLINI WALT INFOR MATIO N: Menst rual Statu s: LMP (if appli cable ): Clini walt Histo ry/Pr eviou s Pap: Type of Neopl lloyd (if appli cable ): Signi fican t Clini walt Findi ngs: Other Histo ry: Hormo yessy (if appli cable ): PAP EDUCA SKYLER L NOTE: The Pap Test is a scree massimo test with an inher ent false negat sharmaine rate. Liqui d-bas ed sampl ing may decre ase, but will not elimi dipti, false negat sharmaine resul ts. A negat sharmaine resul t does not precl ude the prese nce and/o r devel opmen t of disea se, since the prese nce of abnor mal cells in the sampl e depen ds on the locat ion of the lesio n and sampl ing techn ique. Judie nued regul ar scree massimo is the best metho d of cance r preve ntion . If repor robson cytol ogic findi ng do not corre late with physi walt and/o r histo rical findi ngs, furth er inves tigat ion is recom addie d, as clini rodger warrkathleen nted. Not Available [facility] (Lab) [address], [place], [address], 12/10/2024 15:40:41 12/04/19 25 12/04/2024 TRICH OMONA S VAGIN CHLOÉ (RRNA ) trichomonas vaginalis ribosomal RNA (rrna) Negati ve negati ve Not Available [facility] (Lab) [address], [place], [address], 12/10/2024 15:40:42 12/04/19 25 12/04/2024 CT/GC (MARCO) , THINP REP VIAL chlamydia trachomatis, PCR Negati ve negati ve Not Available [facility] (Lab) [address], [place], [address], 12/10/2024 15:40:43 12/04/19 25 12/04/2024 CT/GC (MARCO) , THINP REP VIAL neisseria gonorrhoeae, PCR Negati ve negati ve Not Available [facility] (Lab) [address], [place], [address], 12/10/2024 15:40:43 Result Notes None recorded. Problems Name Problem SNOMED Code Status Onset Date Resolution Date Notes Provider Name and Address Organization Details Recorded Time Genital herpes simplex 07697194 Active 2021 valtrex 36w [facility] 3 15:06:37 Depressi ve disorder 02291941 Active 2021 zoloft start 09/29 WANTS TO WEAN FOR DELIVERY AND RESTART AFTER DELIVERY [facility] 3 15:06:37 Pregnanc y 47987577 Completed 202105/14/2023 [facility] 3 15:06:44 Depressi ve disorder 95725315 Completed 2021 zoloft start 09/29 WANTS TO WEAN FOR DELIVERY AND RESTART AFTER DELIVERY [facility] 3 15:06:37 Genital herpes simplex 16572612 Completed 2021 valtrex 36w [facility] 3 15:06:37 Placenta previa marginal is 00188307 Completed RESOLVED 2.7cm at 24w [facility] 3 15:06:37 Breast lump [id number] Completed 201410/10/2021 Breast mass;Rec orded Elsewher e: No Locat ion: [facility] S ource: EHR Tooth Clerk winsome: N Practi ce ID: 0001 Delvis lable Time: 09:30:00 AM Alison Muñoz [facility] 1 16:17:03 Dysfunct ional uterine bleeding Completed 201410/10/2021 Unspecif ied disorder s of menstrua tion and other abnormal bleeding from female genital tract;Re corded Elsewher e: No Locat ion: [facility] S ource: EHR Tooth Clerk winsome: N Practi ce ID: 0001 Delvis lable Time: 08:30:00 AM Alison Muñoz [facility] 16:17:06 Speciali zed medical examinat ion Completed 201310/10/2021 Other specifie d chlamydi al diseases ;Recorde d Elsewher e: No Locat ion: [facility] S ource: EHR Tooth Clerk winsome: N Practi ce ID: 0001 Delvis lable Time: 09:30:00 AM Alison Muñoz [facility] 16:17:33 Pregnanc y test negative [id number] Completed 201410/10/2021 Pregnanc y examinat ion or test, negative result;R ecorded Elsewher e: No Locat ion: [facility] S ource: EHR Tooth Clerk winsome: N Evelioti ce ID: 0001 Delvis lable Time: 10:45:00 AM Alison Muñoz [facility] 16:17:25 Evaluati on finding Completed 201810/10/2021 Unsp abnormal cytolog findings in specmn from cervix uteri;Re corded Elsewher e: No Locat ion: [facility] S ource: EHR Tooth Clerk winsome: N Evelioti ce ID: 0001 Delvis lable Time: 11:00:00 AM Alison Muñoz [facility] 16:17:[address] Concept Completed 201810/10/2021 Encntr for nurse gynecology exam (general ) (routine ) w/o abn findings ;Recorde d Elsewher e: No Locat ion: [facility] S ource: EHR Tooth Clerk winsome: N Evelioti ce ID: 0001 Delvis lable Time: 08:30:00 AM Alison Muñoz [facility] 16:17:29 Adult health examinat ion Completed 201310/10/2021 ROUTINE MEDICAL EXAM;Rec orded Elsewher e: No Locat ion: [facility] S ource: EHR Tooth Clerk winsome: N Evelioti ce ID: 0001 Delvis lable Time: 09:30:00 AM Alison [facility] 16:16:58 Human papillom avirus deoxyrib onucleic acid detected , high risk on cervical specimen [id number] Completed 201710/10/2021 Cervical high risk HPV DNA test positive ;Recorde d Elsewher e: No Locat ion: [facility] S ource: EHR Tooth Clerk winsome: N Practi ce ID: 0001 Delvis lable Time: 08:45:00 AM Alison [facility] 16:17:14 Tobacco dependen ce syndrome 27813867 Completed 201310/10/2021 Tobacco abuse;Re corded Elsewher e: No Locat ion: [facility] S ource: EHR Tooth Clerk winsome: N Evelioti ce ID: 0001 Delvis lable Time: 09:30:00 AM Alison Muñoz [facility] 16:17:34 Uses IUD (intraut erine device) contrace ption 390563973 Completed 201410/10/2021 Surveill ance of intraute rine contrace ptive device;R ecorded Elsewher e: No Locat ion: [facility] S ource: EHR Tooth Clerk winsome: N Practi ce ID: 0001 Delvis lable Time: 08:30:00 AM Alison [facility] 16:17:20 Speciali zed medical examinat ion Completed 201310/10/2021 Gynecolo gical Examinat ion;Elfego rded Elsewher e: No Locat ion: [facility] S ource: EHR Tooth Clerk winsome: N Practi ce ID: 0001 Delvis lable Time: 09:30:00 AM Alison Muñoz [facility] 1 16:17:31 Atypical squamous cells of undeterm ined signific ance on cervical Papanico laou smear [id number] Completed 201410/10/2021 ASCUS on cervical Pap smear;Re corded Elsewher e: No Locat ion: [facility] S ource: EHR Tooth Clerk winsome: N Evelioti ce ID: 0001 Delvis lable Time: 01:15:00 PM Alison [facility] 16:17:01 Insertio n of intraute rine contrace ptive device Completed 201410/10/2021 INSERTIO N OF IUD;Elfego rded Elsewher e: No Locat ion: [facility] S ource: EHR Tooth Clerk winsome: N Evelioti ce ID: 0001 Delvis lable Time: 10:45:00 AM Alison [facility] 16:17:[address] Concept Completed 201410/10/2021 Encntr for general adult medical exam w/o abnormal findings ;Recorde d Elsewher e: No Locat ion: [facility] S ource: EHR Tooth Clerk winsome: N Evelioti ce ID: 0001 Delvis lable Time: 11:00:00 AM Alison [facility] 16:17:28 Worried well [id number] Completed 201610/10/2021 'Worried well';Re corded Elsewher e: No Locat ion: [facility] S ource: EHR Tooth Clerk winsome: N Evelioti ce ID: 0001 Delvis lable Time: 03:30:00 PM Alison [facility] 16:17:38 Contrace ptive sheath status 539909287 Completed 201510/10/2021 Encounte r for routine checking of IUD;Elfego rded Elsewher e: No Locat ion: [facility] S ource: EHR Tooth Clerk winsome: N Practi ce ID: 0001 Delvis lable Time: 01:30:00 PM Alison Muñoz [facility] 16:17:04 Hypothyr oidism 39978975 Completed 201310/10/2021 Hypothyr oidism;R ecorded Elsewher e: No Locat ion: [facility] S ource: EHR Tooth Clerk winsome: Y Practi ce ID: 0001 Delvis lable Time: 02:45:00 PM Alison Muñoz [facility] 16:17:17 Pelvic and perineal pain 277353434 Completed 201510/10/2021 Pelvic and perineal pain;Rec orded Elsewher e: No Locat ion: [facility] S ource: EHR Tooth Clerk winsome: N Evelioti ce ID: 0001 Delvis lable Time: 04:00:00 PM Alison Muñoz [facility] 16:17:23 Low risk human papillom avirus deoxyrib onucleic acid detected in specimen from cervix [id number] Completed 201510/10/2021 Cervical low risk HPV DNA test positive ;Recorde d Elsewher e: No Locat ion: [facility] S ource: EHR Tooth Clerk winsome: N Evelioti ce ID: 0001 Delvis lable Time: 01:30:00 PM Alison Muñoz [facility] 16:17:15 Acute vulvitis 52072803 Completed 201610/10/2021 Vulvitis ;Recorde d Elsewher e: No Locat ion: [facility] S ource: EHR Tooth Clerk winsome: N Practi ce ID: 0001 Delvis lable Time: 01:45:00 PM Alison Muñoz [facility] 16:16:56 Acute vaginiti s 88609848 Completed 201610/10/2021 Vaginiti s;Record ed Elsewher e: No [facility] Tooth Clerk winsome: N Evelioti ce ID: 0001 Delvis lable Time: 01:45:00 PM Alison Muñoz [facility] 16:16:54 Family planning surveill ance Completed 201410/10/2021 Contrace ptive method surveill ance;Rec orded Elsewher e: No Locat ion: [facility] S ource: EHR Tooth Clerk winsome: N Evelioti ce ID: 0001 Delvis lable Time: 01:15:00 PM Alison Muñoz [facility] 16:17:10 Malaise and fatigue [id number] Completed 201310/10/2021 Fatigue / Malaise; Recorded Elsewher e: No Locat ion: [facility] S ource: EHR Tooth Clerk winsome: N Evelioti ce ID: 0001 Delvis lable Time: 02:45:00 PM Alison Muñoz [facility] 16:17:22 Venereal disease screenin g Completed 201310/10/2021 Screenin g examinat ion for venereal disease; Recorded Elsewher e: No Locat ion: [facility] S ource: EHR Tooth Clerk winsome: N Evelioti ce ID: 0001 Delvis lable Time: 09:30:00 AM Alison Muñoz [facility] 16:17:36 Atypical glandula r cells on cervical Papanico laou smear 724212086 Completed 201410/10/2021 Abnormal glandula r Papanico laou smear of cervix;R ecorded Elsewher e: No Locat ion: [facility] S ource: EHR Tooth Clerk winsome: N Evelioti ce ID: 0001 Delvis lable Time: 01:15:00 PM Alison Muñoz [facility] 16:16:59 Screenin g for malignan t neoplasm of cervix Completed 201010/10/2021 Pap Smear;Pr actice ID: 0001 Alison Muñoz [facility] 16:17:26 Herpes simplex 09166640 Completed 201010/10/2021 Herpes simplex without mention of complica tion;Pra ctice ID: 0001 Alison [facility] 16:17:12 Dysuria 89450363 Completed 201410/10/2021 Dysuria; Practice ID: 0001 Alison [facility] 16:17:07 Problem Notes None recorded. Procedures Surgical History Date Name Laterality Status Provider Name and Address Organization Details Recorded Time 12/04/19 25 Date of Last Pap Smear completed Ester Mcqueen [facility] 12/10/2024 11:08:11 10/11/20 21 IUD Removal completed Maye Winston [facility] [address], [place], [address], [facility] 10/11/2021 11:43:40 01/14/20 19 Colposcopy completed [facility] 10/11/2021 11:25:39 01/01/20 15 Date of Last Mammogram completed [facility] 10/11/2021 11:26:32 Imaging Results None recorded. Procedure Notes None recorded. Medical Equipment None Reported. Allergies No known drug allergies Medications Name Sig Start Date Stop Date Status Note LastModified by Organization Details LastModified Time amoxicill in 500 mg capsule TAKE 1 CAPSULE BY MOUTH EVERY 8 HOURS 02/06 completed Not Available Not Available Not Available prednison e 10 mg tablet TAKE 3 TABLETS BY MOUTH IN THE MORNING FOR 3 DAYS THEN 2 IN THE MORNING FOR 3 DAYS THEN 1 IN THE MORNING FOR 3 DAYS 06/21 completed Not Available Not Available Not Available doxycycli ne hyclate 100 mg capsule take 1 capsule by oral route every 12 hours 02/22 completed Prescrib ed Elsewher e: No Locat ion: [facility]ante [facility] odify By: aurelia Hays r DateTime : 09/21/20 15 09:13:56 AM Not Available Not Available Not Available albuterol sulfate 2.5 mg/3 mL (0.083 %) solution for nebulizat ion USE 1 VIAL IN NEBULIZE R EVERY 4 TO 6 HOURS NEEDED FOR SHORTNES S OF BREATH OR WHEEZING active Not Available Not Available No t Available trazodone 50 mg tablet TAKE 1/2 - 1 TABLET EVERY EVENING AT BEDTIME NEEDED FOR SLEEP active Not Available Not Available No t Available azithromy maritza 250 mg tablet TAKE 2 TABLETS BY MOUTH ON DAY 1, AND THEN TAKE 1 TABLET BY MOUTH ONCE A DAY ON DAY 2 THROUGH DAY 5 active Not Available Not Available No t Available valacyclo vir 1 gram tablet TAKE 1 TABLET BY MOUTH TWICE DAILY FOR 5 DAYS active Not Available Not Available No t Available prednison e 20 mg tablet TAKE 2 TABLETS BY MOUTH ONCE DAILY FOR 3 DAYS THEN 1 & 1/2 (ONE & ONE-HALF ) ONCE DAILY FOR 3 DAYS THEN 1 ONCE DAILY FOR 3 DAYS THEN 1/2 (ONE-VLAD F) ONCE DAILY FOR 3 DAYS 12/04 completed Not Available Not Available Not Available Flagyl 500 mg tablet take 1 tablet by oral route every 12 hours 07/25 completed Prescrib ed Elsewher e: Yes Loca tion: [facility] odify By: aurelia Hays r DateTime : 06/25/20 17 11:13:14 AM Not Available Not Available Not Available benzonata te 100 mg capsule TAKE 1 CAPSULE BY MOUTH 3 TIMES A DAY 09/29 completed Not Available Not Available Not Available Synthroid 75 mcg tablet take 1 tablet by oral route every day 12/23 completed Prescrib ed Elsewher e: No Locat ion: [facility] odify By: lauren beckford DateTime : 06/23/20 16 08:10:44 AM Not Available Not Available Not Available Synthroid 50 mcg tablet take 1 tablet (50MCG) by oral route every day 02/10 completed Prescrib ed Elsewher e: No Locat ion: [facility] odify By: quinn beckford DateTime : 07/28/20 13 09:08:45 AM Not Available Not Available Not Available monteluka st 10 mg tablet TAKE 1 TABLET BY MOUTH EVERY DAY AT BEDTIME active Not Available Not Available No t Available Valtrex 500 mg tablet take 1 tablet by oral route every 12 hours 10/11 completed Prescrib ed Elsewher e: No Locat ion: [facility] odify By: gulshan canela DateTime : 04/03/20 19 11:53:59 AM Not Available Not Available Not Available methylpre dnisolone 4 mg tablets in a dose pack TAKE BY MOUTH DIRECTED ON INSIDE OF PACKAGE 12/10 completed Not Available Not Available Not Available albuterol sulfate HFA 90 mcg/actua tion aerosol inhaler INHALE 2 PUFFS BY MOUTH 4 TIMES DAILY NEEDED FOR WHEEZING active Not Available Not Available No t Available Vitamin D2 1,250 mcg (50,000 unit) capsule take 1 capsule (43338GG ITS) by oral route every week 07/30 completed Prescrib ed Elsewher e: No Locat ion: [facility] odify By: helen canela DateTime : 02/13/20 14 10:02:27 AM Not Available Not Available Not Available norethind geovanna (contrace ptive) 0.35 mg tablet TAKE 1 TABLET BY MOUTH ONCE DAILY 12/04 completed Not Available Not Available Not Available ketoconaz ole 2 % topical cream apply by topical route every day to the affected area(s) 02/22 completed Prescrib ed Elsewher e: No Locat ion: [facility] odify By: aurelia grajeda DateTime : 09/13/20 15 11:00:00 AM Not Available Not Available Not Available Vitamin B-12 1,000 mcg sublingua l tablet place 1 by Sublingu al route every day 02/12 completed Prescrib ed Elsewher e: No Locat ion: [facility]ante sid[facility] odify By: gmedicalthea Garcialester er DateTime : 02/13/20 14 10:02:27 AM Not Available Not Available Not Available cefdinir 300 mg capsule TAKE 1 CAPSULE BY MOUTH TWICE A DAY 06/21 completed Not Available Not Available Not Available sertralin e 50 mg tablet TAKE 1 TABLET BY MOUTH EVERY DAY active Not Available Not Available No t Available doxycycli ne hyclate 100 mg tablet TAKE 1 TABLET BY MOUTH TWICE DAILY 12/10 completed Not Available Not Available Not Available hydroxyzi ne pamoate 25 mg capsule 1 CAPSULE BY MOUTH TWICE DAILY NEEDED FOR ANXIETY active Not Available Not Available No t Available cyclobenz aprine 5 mg tablet TAKE 1/2 TO 2 TABLETS BY MOUTH ONCE DAILY AT BEDTIME NEEDED FOR MUSCLE SPASM 12/10 completed Not Available Not Available Not Available Microgest in (21) 1.5 mg-30 mcg tablet TAKE 1 TABLET BY MOUTH ONCE DAILY active Not Available Not Available No t Available Claravis 10 mg capsule take by oral route 2 times every day 01/01 completed Prescrib ed Elsewher e: Yes Loca tion: [facility] odify By: sorin Hays r DateTime : 07/30/20 14 09:30:00 AM Not Available Not Available Not Available bupropion HCl XL 150 mg 24 hr tablet, extended release TAKE 1 TABLET BY MOUTH EVERY DAY active Not Available Not Available No t Available Wellbutri n XL 300 mg 24 hr tablet, extended release take 1 tablet by oral route every day 01/01 completed Prescrib ed Elsewher e: No Locat ion: [facility] sid[facility] odify By: sorin Hays r DateTime : 07/30/20 14 09:30:00 AM Not Available Not Available Not Available Ortho-Cyc kiki (28) 0.25 mg-35 mcg tablet TAKE ONE TABLET BY MOUTH ONCE DAILY 06/10 completed Prescrib ed Elsewher e: No [facility] By: lula zepedaunter DateTime : 03/29/20 15 11:05:36 AM Not Available Not Available Not Available Claritin active Not Available Not Avai lable Not Available 12/04 completed Not Available Not Available Not Available Seasoniqu e 0.15 mg-30 mcg (84)/10 mcg(7) tablets,3 month dose pack 07/30 completed Prescrib ed Elsewher e: No Locat ion: [facility] odify By: ngoc parker DateTime : 07/16/20 13 10:15:00 AM Not Available Not Available Not Available desvenlaf axine succinate ER 50 mg tablet,ex tended release 24 hr TAKE 1 TABLET BY MOUTH ONCE DAILY active Not Available Not Available No t Available Zyrtec 10 mg capsule 09/29 completed Prescrib ed Elsewher e: Yes Loca tion: [facility] odify By: helen canela DateTime : 07/16/20 13 10:15:00 AM Not Available Not Available Not Available desvenlaf axine succinate ER 25 mg tablet,ex tended release 24 hr TAKE 1 TABLET BY MOUTH EVERY MORNING FOR 7 DAYS THEN STOP active Not Available Not Available No t Available Paxlovid 300 mg (150 mg x 2)-100 mg tablets in a dose pack TAKE 3 TABLETS TOGETHER (TWO 150 MG NIRMATRE LVIR TABLETS AND ONE 100 MG RITONAVI R TABLET) BY MOUTH TWICE DAILY FOR 5 DAYS. 12/04 completed Not Available Not Available Not Available Vitals Date Recorded Body height Body mass index (BMI) Body weight Systolic blood pressure Diastolic blood pressure Provider Name and Address Organization Details Last Updated DateTime 05/22/2023 162.56 cm 34.5 kg/m2 90845.07 g 102 mm[Hg] 68 mm[Hg] Beth Figueroa [facility] 3 14:57:57 Date Recorded Body height Body mass index (BMI) Body weight Systolic blood pressure Diastolic blood pressure Provider Name and Address Organization Details Last Updated DateTime 10/01/2023 162.56 cm 35 kg/m2 67055.84 g 119 mm[Hg] 77 mm[Hg] Debra Everett [facility] 3 09:11:15 Date Recorded Body height Body mass index (BMI) Body weight Systolic blood pressure Diastolic blood pressure Provider Name and Address Organization Details Last Updated DateTime 12/04/2024 162.56 cm 13.7 kg/m2 85596.39 g 116 mm[Hg] 80 mm[Hg] TOÑO Howell [facility] 5 11:44:44 Date Recorded Body height Body mass index (BMI) Body weight Systolic blood pressure Diastolic blood pressure Provider Name and Address Organization Details Last Updated DateTime 12/10/2024 162.56 cm 30.6 kg/m2 42669.44 g 121 mm[Hg] 79 mm[Hg] Ester Richar [facility] 5 11:06:56 Social History Question Answer Notes LastModified by Organizat ion Details LastModified Time Tobacco Smoking Status Former Smoker Debra og, [facility] 10/01/2023 09:12:13 Do You Have An Advance Directive? No Information not available 06/21/2022 What Is Your Level Of Alcohol Consumption? Occasional [email or web address] Information not available 10/01/2023 How Many Years Have You Consumed Alcohol? 7 Information not available 06/21/2022 Are You Blind Or Do You Have Difficulty Seeing? No Information not available 06/21/2022 What Is Your Level Of Caffeine Consumption? Moderate Information not available 06/21/2022 How Much Tobacco Do You Chew? None Information not available 06/21/2022 In The 14 Days Before Symptom Onset, Have You Had Close Contact With A Laboratory-confir med COVID-19 While That Case Was Ill? No Information not available 06/21/2022 In The 14 Days Before Symptom Onset, Have You Had Close Contact With A Person Who Is Under Investigation For COVID-19 While That Person Was Ill? No Information not available 06/21/2022 Have You Been To An Area Known To Be High Risk For COVID-19? No Information not available 06/21/2022 Are You Deaf Or Do You Have Serious Difficulty Hearing? No Information not available 06/21/2022 What Type Of Diet Are You Following? REGULAR Information not available 06/21/2022 What Is The Highest Grade Or Level Of School You Have Completed Or The Highest Degree You Have Received? 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 Yes Information not available 06/21/2022 Do You Use Protection During Sex? No Information not available 06/21/2022 Do You Use Your Seat Belt Or Car Seat Routinely? Yes Information not available 06/21/2022 Are You Sexually Active? Yes [email or web address] Information not available 12/04/2024 Do You Have Smoke And Carbon Monoxide Detectors In Your Home? Yes Information not available 06/21/2022 At What Age Did You Start Smoking Tobacco? 14 Information not available 06/21/2022 How Much Tobacco Do You Smoke? No [email or web address] Information not available 10/01/2023 Do You Feel Stressed (tense, Restless, Nervous, Or Anxious, Or Unable To Sleep At Night)? [id number] Information not available 06/21/2022 Do You Use Any Illicit Or Recreational Drugs? No Information not available 06/21/2022 Do You Use Sunscreen Routinely? Yes Information not available 06/21/2022 How Many Years Have You Smoked Tobacco? 12 Information not available 06/21/2022 Have You Used IV Drugs? No Information not available 06/21/2022 Sex: Unknown Functional Status Question Answer Note LastModified by Organizat ion Details LastModified Time Do you have difficulty walking or climbing stairs? No [email or web address] Information not available 10/01/2023 Are you able to walk? YESWOREST Information not available 06/21/2022 Are you able to care for yourself? Yes [email or web address] Information not available 10/01/2023 Do you have difficulty dressing or bathing? No [email or web address] Information not available 10/01/2023 What is your exercise level? Occasional Information not available 06/21/2022 Mental Status None recorded. Family History Relationship Description Onset Age of this Age Resolved Age Notes LastModified by Organization Details LastModified Time Mother Duque syndrome [email or web address] Not available 2024 11:47:51 Mother Malignant neoplasm of ovary [email or web address] Not available 2024 11:09:03 Maternal Aunt Duque syndrome Not available 2024 11:48:00 Notes:aunt: Cancer, colon Co usin: Cancer, colon Maternal grandfather: Hypertension, Cancer, colon, liver cancer, Diabetes mellitus Maternal grandmother: Cancer, colon Medical History Condition Response Allergies (Food, seasonal, environmental ) N Other Y Drug/Latex Allergies/Reactions N Breast Cancer N Blood Transfusion N Lung Disease N Dermatologic Disorders N Defects or Inherited Disease N Breast Problem N Gestational Diabetes N Hematologic disorders N Anesthesia Complications N History of STI N Deep Vein Thrombosis N Polycystic ovary syndrome N Anxiety Disorder N Autoimmune disease N Arthritis N Polyps N Infertility N History of abnormal pap N Acid Reflux (GERD) N Cancer N Varicosities N Stroke N Neurologic/Epilepsy N Endometriosis N High Cholesterol N Headaches N Fibromyalgia N Kidney Disease N Heart Problems N Thyroid Problems N Kidney or Bladder Problems N GI Problems N Eating Disorder N Anemia N Art (IVF or FET) N Psychiatric Illness N Ovarian Cancer N Diabetes N Pulmonary (TB, Asthma) N Hepatitis/Liver Disease N No Past Medical History N Eczema N Urinary Tract Infection N Abuse/Domestic Violence N Asthma N Trauma/Violence N Depression/ depression N Heart Disease N Pre-Eclampsia N Hypertension N Osteoporosis N Thrombophilias N Gynecological History Statement/Question Response Date of Last Mammogram 01/01/2015 Flow Heavy Date of LMP 11/27/2024 N Was last menstrual period normal N STIs/STDs Yes Date of Last Colonoscopy N/A Desired Control Method N/A Abnormal Pap Yes On BCP's at Conception? N Colposcopy 01/13/2019 HPV Vaccine Y Duration of Flow (days) 4 Current Control Method BCPs Are cycles usually normal Y Frequency of Cycle (Q days) 27 Sexually Active? Y Menses Monthly Y Date of DEXA bone scan Age of first menstrual cycle 10 Date of Last Pap Smear 12/04/2024 Sexual Problems? N LMP Definite N Obstetrics History GPAL:G 1 P 1 0 0 1 Type Value Full Term 1 Living 1 Total 1 Past Encounters Encounter ID Performer Location Encounter Start Date Encounter Closed Date Diagnosis/Indication Diagnosis SNOMED-CT Code Diagnosis ICD10 Code Diagnosis Note [id number] MERY [facility] [address] [address] 10/11/2021 10:51:37 10/11/2021 12:07:10 Gynecologic examination 26367258 Z01.419 Take Calcium with Vitamin D 1200mg daily if not receiving in daily diet. It is strongly advised to have an annual flu shot and up can obtain at most pharmacies . If you have not had a TDap shot in the last 10 years you should obtain one as well. Discussed with patient & provided with informatio n regarding Gardisil vaccine to prevent the 4 strains for HPV that cause cervical cancer if under age 26. Encourage safe sexual practices, to use condoms and limit partners if not already in a monogamous relationsh ip. Do monthly self breast exams. Have mammogram yearly or every other year depending on family history. BRCA testing is now available for patients with strong genetic history of female cancer. If interested contact the office. Engage in daily exercise of low impact aerobic exercise 45-60 minutes 4-5 times weekly. Avoid tobacco and illicit drugs as well as using moderation with alcohol intake less than 1-2 8 oz beverages daily. This lifestyle behavior pattern will lead to less health conditions and longer life span. If BMI greater than 25 weight watchers or dietary consult advised. Patient received above instructio ns, and questions have been answered. If you have any questions please call or respond to this email. Patient was made aware of the patient portal and may obtain a paper copy of today's plan if desired. Pap sentSTD sentMammo n/aGenetic cancer screen discussed- consider earlier colon screenings Removal of intrauterine device 07140545 Z30.432 She expressed understand ing of procedure today for removal of IUD. It was explained that she may have bleeding or spotting after the removal of the device today as well. If cannot see the strings of this device we will need to get an US image to make that the device is still in place and not in an unobtainab le position. She expressed understand ing of all the above instructio ns. a possibilit y once this device is removed. Back up method or other form of BC recommende d if trying to avoid . Track menses to determine what new normal is. [id number] Maria Eugenia GregorioMERY [place] [address],[place] [address] 06/21/2022 09:53:00 06/21/2022 12:39:46 Irregular periods 66509572 N92.6 Pelvic exam WNLUrine hcg (-) todayWe agreed to lab work, would like to check TSH given hx of hypothyroi dismPelvic u/s orderedShe will continue to keep a menstrual diaryDoes not desire BC at this timeWill await labs and pelvic u/s Time spent in visit is a total of 30 mins with at least 50% of visit consisting of counseling and review of plan of care.ED precaution s discussed with patient Contracept ion care management 564644566 Z30.9 Venereal d isease screening 746488909 Z11.3 Pain in pelvis 22414845 R10.2 [id number] Benjamín Martinez MD [place] [address],[place] [address] 06/29/2022 15:56:51 06/29/2022 16:28:55 Pain in pelvis 45440193 R10.2 N92.6 [id number] Tricia Bro MD [place] [address],[place] [address] 07/14/2022 09:53:09 07/14/2022 12:58:55 Irregular periods 59663720 N92.6 [id number] Tricia Bro MD [place] [address],[place] [address] 09/01/2022 12:15:07 09/01/2022 14:26:26 Spotting per vagina in 910372262 O26.851 Z3A.00 [id number] Tricia Bro MD [place] [address],[place] [address] 09/08/2022 10:46:33 09/08/2022 13:38:19 Threatened miscarriage 72204248 O20.0 Z3A.08 [id number] Tricia Bro MD [place] [address],[place] [address] 09/29/2022 09:25:02 09/29/2022 13:07:25 [id number] Tricia Bro MD [place] [address],[place] [address] 09/29/2022 09:25:27 10/02/2022 15:37:55 test positive 986206770 Z32.01 Genital he rpes simplex 45989996 A60.9 Depressive disorder 3548 9007 F32.A Dizziness 487896571 R42 Cyst of left ovary 69840 99063 0396538 N83.202 Abnormal c ervical Papanicolaou smear 509222887 R87.619 Venereal d isease screening 916696564 Z11.3 [id number] Tricia Bro MD [place] [address],[place] [address] 10/20/2022 16:16:52 10/21/2022 12:52:42 screening 053990938 Z36.82 [id number] Tricia Bro MD [place] [address],[place] [address] 10/25/2022 14:23:33 10/30/2022 15:24:22 Routine care 186590379 Z34.91 Depressive disorder 3548 9007 F32.A Genital he rpes simplex 69515817 A60.9 [id number] Tricia Bro MD [place] [address],[place] [address] 11/20/2022 12:38:12 11/20/2022 12:55:43 Routine care 259223405 Z34.91 [id number] Tricia Bro MD [place] [address],[place] [address] 12/13/2022 10:43:43 12/13/2022 12:44:08 screening for malformation 333011052 Z36.3 [id number] Tricia Bro MD [place] [address],[place] [address] 12/13/2022 10:44:02 12/13/2022 12:43:50 Routine care 148307514 Z34.91 Placenta p revia marginalis 92040298 O44.22 [id number] MD Stefania Rae [address],[place] [address] 01/09/2023 15:58:43 01/09/2023 17:35:18 Low lying placenta 457040861 O44.40 O35.8XX0 Z3A.24 [id number] MD Stefania Rae [address],[place] [address] 01/09/2023 15:59:00 01/09/2023 17:34:13 Routine care 052394369 Z34.91 [id number] Tricia Bro MD [place] [address],[place] [address] 02/06/2023 09:11:28 02/07/2023 18:53:16 Routine care 333142874 Z34.91 Depressive disorder 3548 9007 F32.A [id number] Tricia Bro MD [place] [address],[place] [address] 02/21/2023 14:17:09 02/21/2023 14:44:32 Routine care 555235777 Z34.91 Uterine si ze for dates discrepancy 065221391 O26.849 [id number] Tricia Bro MD [place] [address],[place] [address] 02/23/2023 16:56:23 02/26/2023 15:28:31 Spotting per vagina in 768368480 O26.851 Z3A.30 [id number] MD Stefania Rae [address],[place] [address] 03/07/2023 15:26:44 03/07/2023 15:57:01 Routine care 109583884 Z34.91 [id number] MD Stefania Rae [address],[place] [address] 03/21/2023 14:36:13 03/26/2023 15:10:37 Routine care 187751566 Z34.91 Genital he rpes simplex 21537347 A60.9 [id number] MD Stefania Rae [address],[place] [address] 04/03/2023 10:26:11 04/03/2023 16:08:25 Routine care 928256264 Z34.91 [id number] Tricia Bro MD [place] [address],[place] [address] 04/10/2023 17:28:01 04/11/2023 15:44:52 Routine care 937489942 Z34.91 Depressive disorder 3548 9007 F32.A Genital he rpes simplex 44846452 A60.9 [id number] Tricia Bro MD [place] [address],[place] [address] 04/17/2023 10:39:56 04/17/2023 11:12:32 Routine care 245141264 Z34.91 [id number] Tricia Bro MD [place] [address],[place] [address] 05/22/2023 14:47:51 05/23/2023 10:51:19 care 498483552 Z39.2 Initial pr escription of oral contraception 216558357 Z30.011 [id number] MERY Pruett [place] [address],[place] [address] 08/27/2023 10:17:31 08/28/2023 16:40:19 Left without being seen 4988932887 9102 Z53.21 [id number] MERY Pruett [place] [address],[place] [address] 10/01/2023 08:55:15 10/01/2023 11:12:47 Gynecologic examination 55753213 Z01.419 WWEBC - POPrefills sent, r/b/a reviewedpa p updatedSTI testing declinedge netic testing discussed, handout given to [facility] ed annual exam with PCPRTC in 1 yr or sooner if needed Take Calcium with Vitamin D daily if not receiving in daily diet. It is strongly advised to have an annual flu shot and up can obtain at most pharmacies . If you have not had a TDap shot in the last 10 years you should obtain one as well. Discussed with patient & provided with informatio n regarding Gardisil vaccine to prevent the 4 strains for HPV that cause cervical cancer if under age 26.Encoura ge safe sexual practices, to use condoms and limit partners if not already in a monogamous relationsh ip.Do monthly self breast exams.Enga ge in daily exercise of low impact aerobic exercise 45-60 minutes 4-5 times weekly. Avoid tobacco and illicit drugs. This lifestyle behavior pattern will lead to less health conditions and longer life span. If BMI greater than 25 dietary consult advised.Alden rubio received above instructio ns, and questions have been answered. If you have any questions please call or respond to this email. Patient was made aware of the patient portal and may obtain a paper copy of today's plan if desired. Contracept ion care management 748127315 Z30.9 Initial pr escription of oral contraception 782360875 Z30.011 [id number] MERY Pruett [place] [address] [address] 12/04/2024 11:38:39 12/04/2024 15:03:13 Gynecologic examination 70198799 Z01.419 Z11.51 WWEBC - OCP, refills sent x 12 months. r/b/a reviewedPa p - done todaySTI screen - gc/ct/tric h testing added to pap. HIV/Hep B&C/Syphil is testing ordered per pt requestRou reina labs - PCPRTC in 1 yr or sooner if needed It is strongly advised to have an annual flu shot and up can obtain at most pharmacies . If you have not had a TDap shot in the last 10 years you should obtain one as well. Discussed with patient & provided with informatio n regarding the HPV vaccine if applicable . Encourage safe sexual practices, to use condoms and limit partners if not already in a monogamous relationsh ip. Do monthly self breast exams. BRCA testing is now available for patients with strong genetic history of female cancer. If interested contact the office. Engage in regular exercise. Avoid tobacco and illicit drugs. This lifestyle behavior pattern will lead to less health conditions and longer life span. If BMI greater than 25 dietary consult advised. Questions answered. 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 We discussed her report. We discussed some of the details of Duque syndrome. We discussed future cancer surveillan ce and screening. I spent over 20 minutes on her care in total. We made arrangemen ts for referrals to Oncology and genetic counseling . We agreed to do gynecologi c routine screening for ovarian cancer and endometria l cancer. Health Concerns Section Related Observation LastModified by Organization Detai ls LastModified Time None Recorded Concern Status LastModified by Organization Details LastModified Time None Recorded Advance Directives Directive N: Payers Encounter Date Sequence Insurance Name Policy Number Policy Alcantara Covered Member ID Alcantara Member ID Guarantor Name 05/22/2023 1 [facility] [id number] [facility] [id number] [facility] 08/27/2023 1 [id number] [id number] Monikaroyer Mcpherson[employer] [place] 10/01/2023 1 [facility] [id number] [facility] [id number] Monikaroyer [employer] [place] 12/04/2024 1 [facility] [id number] [facility] [id number] Monika [employer] [place] 12/10/2024 1 [facility] [id number] [facility] [place] [id number] [facility] Notes Date Note Type Note Provider Name and Address Organization Details Recorded Time 05/22/2023 text/html Patient is a 27yo presenting for a 4 week visit. She had a on 04/22 at term weeks [place]. Baby Kris was 7-2., doing great. Doing well overall. . Normal lochia. Pain- minimal. Bowel and bladder function normal. Hepzibah score 6. Feels mood is good on zoloft. Period-no Annual due: now, last Concerns: none Tricia Bro MD [address], [place], [address], [facility] 05/23/2023 08:49:33 10/01/2023 text/html Annual GYNReport ed bypatient.Menstrual cycle:Normal menses Urinary symptoms:No hematuria; No incontinence Vulva:No genital lesion Vagina:Normal vaginal discharge Breast:No breast pain; No breast lump; No nipple discharge Current Contraception:Satisf ied with current contraception; Oral contraceptives Sexual complaints:No sexual complaints; No pain during intercourse; Normal libido Menopausal Symptoms:No menopausal symptoms; Normal vaginal lubrication Psychological symptoms:No depression; No anxiety; No PMDD Preventive measures:Encourage self breast examination; Encourage regular exercise; Encourage no tobacco use; Encourage regular mammograms starting age 40Notes:hx of abnormal pap 2019last pap 09/2022 - normalbreastfeeding, doing wellmaternal grandfather with hx of colon CA, just diagnosed with duque syndrome. MERY Pruett [address], [place], [address], [facility] 10/01/2023 11:07:58 12/04/2024 text/html Annual GYNReport ed bypatient.Menstrual cycle:Normal menses Urinary symptoms:No hematuria; No incontinence Vulva:No genital lesion Vagina:Normal vaginal discharge Breast:No breast pain; No breast lump; No nipple discharge Current Contraception:Satisf ied with current contraception; Oral contraceptives Sexual complaints:No sexual complaints; No pain during intercourse; Normal libido Menopausal Symptoms:No menopausal symptoms; Normal vaginal lubrication Psychological symptoms:No depression; No anxiety; No PMDD Preventive measures:Encourage self breast examination; Encourage regular exercise; Encourage no tobacco use; Encourage regular mammograms starting age 40Notes:29yo [id number] - OCPlast pap 09/2023 : nilm, HPV (-)would like STI testing today recently had genetic testing done and (+) for duque syndrome per pt. She saw a genetic counselor. Needs referral to GI to discuss screening colonoscopy.she is recently divorcedshe does desire future fertility MERY Pruett [address], [place], [address], [facility] 12/04/2024 15:03:18 12/10/2024 text/html 29-year-old colton garcia who is diagnosed with Duque syndrome. We discussed her report. We discussed some of the details of Duque syndrome. We discussed future cancer surveillance and screening. I spent over 20 minutes on her care in total. We made arrangements for referrals to Oncology and genetic counseling. We agreed to do gynecologic routine screening for ovarian cancer and endometrial cancer. Benjamín Martinez MD [address], [place], [address], [facility] 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 Status 10/25/20 22 1 B Positive 170 CLOSED Fetus Data First Name Last Name Admitted to NICU Weight (g) Sex Living Outcome Pediatric Complications Fetus ID Race Codes Race Delivery Type Kris 3231.84 3 M true Full Term [id number] Vaginal Delivery Problems Problem Notes Bro pt Problem Name Start Date End Date Resolution Snomed Code Not e Placenta previa marginalis SELFRESOLVED [id number] RESOLVED 2.7cm at 24w Depressive disorder 09/29/2022 [id number] zoloft start 09/29 WANTS TO WEAN FOR DELIVERY AND RESTART AFTER DELIVERY Genital herpes simplex 09/29/2022 [id number] valtrex 36w Michele Calculation Initial Michele Date Initial Exam Date Initial Exam Provider Initial Ultrasound Date Last Menstrual Period Date Ultra Sound Weeks Gestation 04/30/2023 10/25/2022 09/29/2022 07/24/2022 9 Eighteen To Twenty Week Michele Update Ultra Sound Date Fundal Height At Umbil Quickening Date Ultra Sound Latest Weeks Gestation Final Michele Confirmed By Final Michele Confirmed Date Final Michele Date Ultra Sound Latest Days Gestation 0 [id number] 10/25/2022 04/30/20 23 0 Pre- Flowsheet Flowsheet Date 10/25/2022 Dowling Score Blood Edema Fundus Height Fundus Units Glucose Ketones Leukocytes Nitrite Labor Signs Protein Cervic Dilation Cervic Effacement Cervic Station neg none Type Weight in lbs Pre/Post Dialysis Refused Weight 173.849139746289 BP Diastolic BP Location Tested BP Systolic BP Type 73 106 Fetus Heart Rate Present A 160 Fetus Movement A No Comments Veuns is a 27yo G1 at 13.2 f or care. Her history is significant for genital herpes and depression. She started zoloft a month ago and states it is starting to help, she is pleased. She is getting her covid booster tomorrow. Plan valtrex at 36w. Labs and NIPT today. Routine care. NOrmal NIPT today. Flowsheet Date 11/20/2022 Dowling Score Blood Edema Fundus Height Fundus Units Glucose Ketones Leukocytes Nitrite Labor Signs Protein Cervic Dilation Cervic Effacement Cervic Station neg trace Type Weight in lbs Pre/Post Dialysis Refused Weight 180.172599113732 BP Diastolic BP Location Tested BP Systolic BP Type 72 113 Fetus Heart Rate Present A 145 Fetus Movement A Yes Comments Doing great, no concerns. An atomy US next. Mood good, just tired. Flowsheet Date 12/13/2022 Dowling Score Blood Edema Fundus Height Fundus Units Glucose Ketones Leukocytes Nitrite Labor Signs Protein Cervic Dilation Cervic Effacement Cervic Station Type Weight in lbs Pre/Post Dialysis Refused BP Diastolic BP Location Tested BP Systolic BP Type Fetus Heart Rate Present Fetus Movement Comments Flowsheet Date 12/13/2022 Dowling Score Blood Edema Fundus Height Fundus Units Glucose Ketones Leukocytes Nitrite Labor Signs Protein Cervic Dilation Cervic Effacement Cervic Station neg none none trace Type Weight in lbs Pre/Post Dialysis Refused Weight 185.308405174379 BP Diastolic BP Location Tested BP Systolic BP Type 74 114 Fetus Heart Rate Present A 155 Fetus Movement A Yes Comments Doing well, some trouble sle eping. Us today anatomy complete and wnl. EIF present, discussed. Marginal posterior previa, discussed, precautions given. Repeat US 4w. Discussed Tdap. Flowsheet Date 01/09/2023 Dowling Score Blood Edema Fundus Height Fundus Units Glucose Ketones Leukocytes Nitrite Labor Signs Protein Cervic Dilation Cervic Effacement Cervic Station Type Weight in lbs Pre/Post Dialysis Refused BP Diastolic BP Location Tested BP Systolic BP Type Fetus Heart Rate Present Fetus Movement Comments Flowsheet Date 01/09/2023 Dowling Score Blood Edema Fundus Height Fundus Units Glucose Ketones Leukocytes Nitrite Labor Signs Protein Cervic Dilation Cervic Effacement Cervic Station none Type Weight in lbs Pre/Post Dialysis Refused Weight 192.287325845265 BP Diastolic BP Location Tested BP Systolic BP Type 72 109 Fetus Heart Rate Present A 150 Fetus Movement A Yes Comments Doing great! US today placen ta 2.7cm, marginal previa resolved. 63%. GCT next. Flowsheet Date 02/06/2023 Dowling Score Blood Edema Fundus Height Fundus Units Glucose Ketones Leukocytes Nitrite Labor Signs Protein Cervic Dilation Cervic Effacement Cervic Station neg none 30 none trace Type Weight in lbs Pre/Post Dialysis Refused Weight 202.893429596637 BP Diastolic BP Location Tested BP Systolic BP Type 75 115 Fetus Heart Rate Present A 140 Fetus Movement A Yes Comments Doing very well. Mood good. Asking about weaning off before delivery, definitely wants to do this for baby and then restart in hospital after delivery. We will do this closer to term. GCT today. Discussed and encouraged Tdap. Flowsheet Date 02/21/2023 Dowling Score Blood Edema Fundus Height Fundus Units Glucose Ketones Leukocytes Nitrite Labor Signs Protein Cervic Dilation Cervic Effacement Cervic Station neg trace 34 none trace Type Weight in lbs Pre/Post Dialysis Refused Weight 205.565321955538 BP Diastolic BP Location Tested BP Systolic BP Type 72 112 Fetus Heart Rate Present A 130 Fetus Movement A Yes Comments Doing well, no concerns. Has classes scheduled. Discussed preregistrations. Tdap done. GCT wnl. If S>D continues, will schedule US. Flowsheet Date 02/23/2023 Dowling Score Blood Edema Fundus Height Fundus Units Glucose Ketones Leukocytes Nitrite Labor Signs Protein Cervic Dilation Cervic Effacement Cervic Station Type Weight in lbs Pre/Post Dialysis Refused BP Diastolic BP Location Tested BP Systolic BP Type Fetus Heart Rate Present Fetus Movement Comments Flowsheet Date 03/07/2023 Dowling Score Blood Edema Fundus Height Fundus Units Glucose Ketones Leukocytes Nitrite Labor Signs Protein Cervic Dilation Cervic Effacement Cervic Station neg none 32 none trace Type Weight in lbs Pre/Post Dialysis Refused Weight 204.728318768223 BP Diastolic BP Location Tested BP Systolic BP Type 80 122 Fetus Heart Rate Present A 150 Present Fetus Movement A Yes Comments call for pre admission, sada vera well, +FM, no questions or concerns, precautions reviewed f.u 2 weeks Flowsheet Date 03/21/2023 Dowling Score Blood Edema Fundus Height Fundus Units Glucose Ketones Leukocytes Nitrite Labor Signs Protein Cervic Dilation Cervic Effacement Cervic Station neg none 35 none trace Type Weight in lbs Pre/Post Dialysis Refused Weight 208.251948861257 BP Diastolic BP Location Tested BP Systolic BP Type 72 L arm 108 sitting Fetus Heart Rate Present A 135 Fetus Movement A Yes Comments Doing well. Wants to wean of f zoloft. Discussed taper, precautions given. Valtrex to start 35-36, script sent. GBs next week, discussed. Flowsheet Date 04/03/2023 Dowling Score Blood Edema Fundus Height Fundus Units Glucose Ketones Leukocytes Nitrite Labor Signs Protein Cervic Dilation Cervic Effacement Cervic Station neg none 36 none trace Type Weight in lbs Pre/Post Dialysis Refused Weight 209.554691968269 BP Diastolic BP Location Tested BP Systolic BP Type 73 114 Fetus Heart Rate Present A 125 Fetus Movement A Yes Comments Doing fine. Weaning zoloft, down to 25mg and feeling fine. Taking valtrex. Preregistration done. GBS done and discussed Cervix 1.5/90/-2. Labor precautions given. FU weekly. Flowsheet Date 04/10/2023 Dowling Score Blood Edema Fundus Height Fundus Units Glucose Ketones Leukocytes Nitrite Labor Signs Protein Cervic Dilation Cervic Effacement Cervic Station neg none 36 none trace 3cm 90% -2 Type Weight in lbs Pre/Post Dialysis Refused Weight 214.736868053543 BP Diastolic BP Location Tested BP Systolic BP Type 84 121 Fetus Heart Rate Present A 140 Fetus Movement A Yes Comments Doing well. zoloft taper don e in 5 days, mood fine. Contractions last night q5 min for 30 min. cervix 3cm. GBS neg. Wants to wait for spontaneous labor, does not want to consider induction. Will likely deliver before 39w anyways. Precautions. Flowsheet Date 04/17/2023 Dowling Score Blood Edema Fundus Height Fundus Units Glucose Ketones Leukocytes Nitrite Labor Signs Protein Cervic Dilation Cervic Effacement Cervic Station neg none 36 none trace 2cm 100% -2 Type Weight in lbs Pre/Post Dialysis Refused Weight 213.009796286732 BP Diastolic BP Location Tested BP Systolic BP Type 75 109 Fetus Heart Rate Present A 140 Fetus Movement A Yes Comments Doing well. Great FM. Spurts of contractions. Precautions. Menstrual History Last Menstrual Date Menses Monthly On Bcp Conception Prior Menses Frequency Hcg Plus Date Menarche Onset Age 0907/24/2022 Genetic Screening And Infection History Question Response Note Mental Retardation/Autism false Patient's Age Will Be 35 Years Or Older At Estim ated Date of Delivery false Thalassemia (Occitan, Polish, Mediterranean, Or Background): MCV < 80 false Neural Tube Defect (Meningomyelocele, Spina Bifi da, Or Anencephaly) false Congenital Heart Defect false Down Syndrome false Germán-Sachs (eg, Baptism, Cajun, Amharic-Hettinger) f alse Aden Disease false Sickle Cell Disease Or Trait () false Hemophilia Or Other Blood Disorders false Muscular Dystrophy false Cystic Fibrosis false Richmond's Chorea false Intellectual Disability/Autism false If Yes, Was Person Tested For Fragile X? false Other Inherited Genetic Or Chromosomal Disorder false Maternal Metabolic Disorder (eg, Type 1 Diabetes , PKU) false Patient Or Baby's Father Had A Child With Defects Not Listed Above false Recurrent Loss, Or A Stillbirth false Medications (including Suppl ements, Vitamins, Herbs, OTC Drugs), Illicit/Recreational Drugs, Alcohol true If Yes, Agent(s) And Strength/Dosage false Any Other Genetic History false Live With Someone With TB Or Exposed To TB false Patient Or Partner Has History Of Genital Herpes false Rash Or Viral Illness Since Last Menstrual Perio d false History Of STD, Gonorrhea, Chlamydia, HPV, Syphi lis false Other Infection History false History of HIV false History of Hepatitis false Prior GBS-infected child false Hemoglobinopathy Or Carrier false Other Structural Defect false Recent Travel History Outside of Country false Delivery Information Delivery Date Delivery Type Labor Anesthesia Weeks Gestation Incision Type Labor Labor Length Hrs Delivered By Post Complications Tubal Sterilization Discharge Date Comments Junemre chance [facility] idural 38.6 false Tricia Bro MD ROM & Genital Herpes Simplex, marginal cord Discharge Information Feeding Method Contraceptive Method Maternal HG B and HCT Levels
--- OUTSIDE RECORDS SUMMARY | 2025-03-18 01:41 | XMS_ITS | Clinical Summary ---
Author Organization [facility] Address [address] [place] [address] Care Team Providers Care Life Cycle Assessment Analyst Name Role Phone Tawny Joyce MD Primary Care Provider [phone] Allergies No known active allergies Medications albuterol sulfate HFA 108 (90 Base) MCG/ACT inhaler Inhale 2 puffs into the lungs every 4 (four) hours as needed. Active buPROPion XL (WELLBUTRIN XL) 150 MG 24 hr tablet Take 1 tablet (150 mg total) by mouth every morning. 5 Active albuterol (PROVENTIL) (2.5 MG/3ML) 0.083% nebulizer solution USE 1 VIAL IN NEBULIZER EVERY 4 TO 6 HOURS NEEDED FOR SHORTNESS OF BREATH OR WHEEZING 4 Active sertraline (ZOLOFT) 50 MG tablet Take 1 tablet (50 mg total) by mouth daily. 5 Active MICROGESTIN 1.5-30 MG-MCG tablet Take 1 tablet by mouth daily. 5 Active Multiple Vitamins tablet Take 1 tablet by mouth daily. Active hydrOXYzine (VISTARIL) 25 MG capsule Take 1 capsule (25 mg total) by mouth 3 (three) times daily as needed. 5 Active traZODone (DESYREL) 50 MG tablet Take 1 tablet (50 mg total) by mouth nightly at bedtime. 5 Active azithromycin (ZITHROMAX) 250 MG tabletIndicatio ns:Sore throat Take 2 tablets by mouth on day one then 1 daily for four days. 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 Testing in 2023 from [facility]. Family history of genetic disorder 02/02/2024 Tobacco use 07/11/2017 Morbid obesity with body mass index of 40.0-44.9 in adult 10/23/2016 Wheezing 04/04/2013 Encounters Date Type Department Care Team Description 02/16/2025 12:32 PM CDT - 02/16/2025 11:59 PM CDT Hospital Encounter [address] [id number] [place], [place] Discharge Disposition: Home or Self Care (Routine Discharge) 02/16/2025 9:40 AM CDT Office Visit [facility] - [address] [address] [place], [place] Sore Throat (Swollen glands, neck hurting-x 2 days) 02/16/2025 Travel from Last 3 Months Immunizations Immunization Administration Dates Next Due Dtp (Generic) 03/19/1995,03/21/1994,01/17/1994 ,1993 H1N1 Injectable 2009 Influenza 09/10/2009 Hepatitis B Pediatric 05/04/1994,1993,08/14 Hib (Generic) 03/19/1995,03/21/1994,01/17/1994 ,1993 Influenza (Generic) 08/31/2016 Influenza Adult (Generic) 09/15/2022,08/16/2016 MMR (MMRII) 12/18/1994 Polio Opv (Generic) 12/18/1994,01/17/1994,1993 Tdap (Generic) 02/08/2023 Social History Tobacco Use Types Packs/Day Years Used Date Smoking Tobacco: Every Day Cigarettes Passive Smoke Exposure: Current Smokeless Tobacco: Never Tobacco Cessation:Ready to Q uit: Yes; Counseling Given: Yes Alcohol Use Standard Drinks/Week Comments Yes 0 (1 standard drink = 0.6 oz pur e alcohol) PHQ-2 Answer Date Recorded Patient Health Questionnaire-2 Score 0 02/16/2025 Comments Unknown Sex and Gender Information Value Date Recorded Sex Assigned at Female 02/16/2025 9:25 AM CDT Legal Sex Female 7:45 PM CDT Gender Identity Not on file Sexual Orientation Not on file Last Filed Vital Signs Vital Sign Reading Time Taken Comments Blood Pressure 113/71 02/16/2025 9:33 AM CDT Pulse 78 02/16/2025 9:33 AM CDT Temperature 36.7 C (98.1 F) 02/16/2025 9:33 AM CDT Respiratory Rate 20 02/16/2025 9:33 AM CDT Oxygen Saturation 99% 02/16/2025 9:33 AM CDT Inhaled Oxygen Concentration - - Weight 83.9 kg (185 lb) 02/16/2025 9:33 AM CDT Height 160 cm (5' 3 ) 02/16/2025 9:33 AM CDT Body Mass Index 32.77 02/16/2025 9:33 AM CDT Plan of Treatment Health Maintenance Due Date Last Done Comments Annual Physical 1996 Pneumococcal Vaccine: Pediatrics (0 to 5 Years) and At-Risk Patients (6 to 49 Years) (1 of 2 - PCV) 2012 COVID-19 Vaccine ( season) 2024 10/26/2022, 07/09/2021, 06/18/2021 Cervical Cancer Screening Pap Smear (Age 30 to 64) Every 3 Years 12/04/2027 12/04/2024, 12/04/2024, 12/04/2024 Cervical Cancer Screening Pap with HPV Testing (Age 30 to 64) Every 5 Years 12/04/2029 12/04/2024 Cervical Cancer Screening with HPV 12/04/2029 DTaP, Tdap and Td Vaccines (6 - Td or Tdap) 02/08/2033 02/08/2023, 03/19/1995, 03/21/1994, Additional history exists Hepatitis B Vaccines Completed 05/04/1994, 1993, 1993 Hepatitis C Completed 12/04/2024, 12/04/2024 PHQ-2 (Physician [place]) Completed 02/16/2025 HPV Vaccines Aged Out No longer eligi ble based on patient's age to complete this topic Meningococcal B Vaccine Aged Out No l onger eligible based on patient's age to complete this topic Meningococcal Vaccine Aged Out No tom raulito eligible based on patient's age to complete this topic RSV Immunizations Under 20 Months Aged Out No longer eligible based on patient's age to complete this topic Procedures Procedure Name Priority Date/Time Associated Diagnosis Comments CULTURE STREP A Routine 02/16/2025 9:52 AM CDT Sore throat STREP A RAPID Routine 02/16/2025 Sore throat CORONAVIRUS (COVID-19) INFLUENZA A & B ANTIGEN IA PANEL Routine 02/16/2025 Suspected COVID-19 virus infection from Last 3 Months Results * CULTURE STREP A (02/16/2025 9:52 AM CDT) SPEC DESCRIPTION THROAT 02/16/2025 12:32 PM CDT [facility] SPECIAL REQUESTS NO SPECIAL REQUEST 02/16/2025 12:32 PM CDT [facility] CULTURE RESULT NO STREPTOCOCCUS PYOGENES (GROUP A) ISOLATED 02/18/2025 7:[address] [facility] THROAT SWAB / Unknown 02/16/2025 9:52 AM CDT 02/16/2025 12:36 PM CDT Gracia DEE MICROBIOLOGY - GENERAL ORDER ADA Final Result [facility] [address] [place] [address], [place] [phone] [facility] [address] [place] [address], [place] [phone] * CORONAVIRUS (COVID-19) INFLUENZA A & B ANTIGEN IA PANEL (02/16/2025) Pathologist [facility] CORONAVIRUS ANTIGEN IA NEGATIVE NEGATIVE [id number], [facility] INFLU[facility] A NEGATIVE NEGATIVE [id number], [facility] INFLU[facility]ZA B NEGATIVE NEGATIVE [id number], [place] Internal Control: VALID VALID [id number], [place] NASAL STRUCTURE / Unknown 02/16/2025 Gracia DEE MICROBIOLOGY - GENERAL ORDER ADA Final Result [id number], [place] [address] [place] [address], [place] [phone] * STREP A RAPID (02/16/2025) Pathologist [facility] RAPID STREP TEST NEGATIVE NEGATIVE [id number], [place] Internal Control: VALID VALID [id number] [facility] [place] STRUCTURE OF ANTERIOR PORTION OF NECK / Unknown 02/16/2025 Gracia DEE MICROBIOLOGY - GENERAL ORDER ADA Final Result [id number], [place] [address] [place] [address], [place] [phone] from Last 3 Months Insurance Care Teams Life Cycle Assessment Analyst Relationship Specialty Start Date End Date Tawny Joyce MD [address] [place] [id number] PCP - General PEDIATRICS 10/12/18
--- OUTSIDE RECORDS SUMMARY | 2025-03-18 01:41 | XMS_ITS | Clinical Summary ---
Author Organization [facility] Address [address] [place] [address] Care Team Providers Care Detective Captain Name Role Phone Amilcar Mcelroy MD Primary Care Provider [phone] Allergies No known active allergies Medications levothyroxine 75 mcg tablet Take 1 Tablet (75 mcg) by mouth daily. 90 Tablet 3 6 Active cetirizine (ZyrTEC) 5 mg tablet Take 5 mg by mouth daily. Active albuterol HFA 90 mcg inhaler Take 2 Puffs by inhalation every 6 hours as needed for Shortness of Breath. Active albuterol (PROVENTIL,VENTOL IN) 2.5 mg /3 mL (0.083 %) Solution for Nebulization Take 3 mL (2.5 mg) by inhalation every 6 hours as needed for Shortness of Breath. 225 mL 7 Active sulfamethoxazole- trimethoprim (BACTRIM DS) 800-160 mg tablet 8 Active valACYclovir (VALTREX) 500 mg tablet TAKE 1 TABLET DAILY 90 Tablet 8 Active Active Problems Problem Noted Date Diagnosed Date Tobacco use 07/11/2017 Morbid obesity with BMI of 40.0-44.9, adult 10/12 Immunizations Immunization Administration Dates Next Due INFLUENZA VACCINE QUADRIVALENT 3 YR UP PF IM 03/2016 Social History Tobacco Use Types Packs/Day Years Used Date Smoking Tobacco: Every Day Cigarettes Smokeless Tobacco: Never Alcohol Use Standard Drinks/Week Comments No 0 (1 standard drink = 0.6 oz pur e alcohol) socially Comments No Sex and Gender Information Value Date Recorded Sex Assigned at Not on file 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 Gender Identity Not on file Sexual Orientation Not on file Last Filed Vital Signs Vital Sign Reading Time Taken Comments Blood Pressure 118/80 05/29/2018 11:22 AM CDT Pulse 80 05/29/2018 11:22 AM CDT Temperature 36.9 C (98.5 F) 05/29/2018 11:22 AM CDT Respiratory Rate 18 02/15/2018 1:56 AM CDT Oxygen Saturation 98% 02/15/2018 1:56 AM CDT Inhaled Oxygen Concentration - - Weight 108.9 kg (240 lb) 05/29/2018 11:22 AM CDT Height 162.6 cm (5' 4 ) 05/29/2018 11:22 AM CDT Body Mass Index 41.2 05/29/2018 11:22 AM CDT Plan of Treatment Health Maintenance Due Date Last Done Comments DTAP/TDAP/TD VACCINES (1 - Tdap) 2012 HEPATITIS B VACCINES (1 of 3 - 19+ 3-dose series) 2012 HPV/Cotest (21-29) 2014 CERVICAL CANCER SCREENING 2023 HPV/Cotest (30-65) 2023 PAP SMEAR 2023 INFLUENZA VACCINE (#1) 2024 08/16/2016 HPV VACCINES Aged Out No longer eligi ble based on patient's age to complete this topic Care Teams Detective Captain Relationship Specialty Start Date End Date Amilcar Mcelroy MD [address] [facility] [place] [address] PCP - General Internal Medicine 10/23/16
--- OUTSIDE RECORDS SUMMARY | 2025-03-18 01:41 | XMS_ITS | Clinical Summary ---
Author Organization [facility] Address [address] [place] [address] Care Team Providers Care Automatic Lathe Tender Name Role Phone Unavailable Primary Care Provider Unavailabl e Source Comments [facility],non-owned Affiliates and Associated Physician Practices is amultiple site organization consisting of ambulatory clinics and hospital sitesin [place], [place], [place] and [place]. This disclosure is being madepursuant to the Care Everywhere program and may not contain all information available regarding this patient. Last updated 18.[facility] Encounters Date Type Department Care Team Description 12/30/2024 Lab Requisition [facility] - DermPath Lab [address] [place] [id number] Elizabeth Malone MD from Last 3 Months Social History Tobacco Use Types Packs/Day Years Used Date Smoking Tobacco: Never Assessed Comments Unknown Sex and Gender Information Value Date Recorded Sex Assigned at Not on file Legal Sex Female 5:38 AM SENIOR ENVIRONMENTAL SCIENTIST Gender Identity Not on file Sexual Orientation Not on file Plan of Treatment Health Maintenance Due Date Last Done Comments PAP SMEAR 1993 HIV SCREENING 2008 HEPATITIS C SCREENING 09/07/2011 DTAP/TDAP/TD VACCINES (1 - Tdap) 2012 HEPATITIS B VACCINE (1 of 3 - 19+ 3-dose series) 2012 COVID-19 VACCINE ( - 2023-2 5 season) 2024 DEPRESSION SCREENING 11/12/2024 INFLUENZA VACCINE (Season Ended) 2025 ZOSTER VACCINE (1 of 2) 2043 HIB VACCINE Aged Out No longer eligi ble based on patient's age to complete this topic HPV VACCINE Aged Out No longer eligi ble based on patient's age to complete this topic MENINGOCOCCAL (Group B) VACC INE SHARED DECISION-MAKING Aged Out No longer eligibl e based on patient's age to complete this topic MENINGOCOCCAL GROUPS A/C/Y/W VACCINE Aged Out No longer eligible b ased on patient's age to complete this topic PNEUMOCOCCAL VACCINE Aged Out No long er eligible based on patient's age to complete this topic Procedures Procedure Name Priority Date/Time Associated Diagnosis Comments DERMATOPATHOLOGY Routine 12/30/2024 2:01 PM SENIOR ENVIRONMENTAL SCIENTIST from Last 3 Months Results * DERMATOPATHOLOGY (12/30/2024 2:01 PM SENIOR ENVIRONMENTAL SCIENTIST) Case Report Dermatopathology Report Case: [id number] Authorizing Provider: Elizabeth Malone MD Collected: 12/30/2024 02:01 PM Ordering Location: [facility] - Received: 01/01/2025 07:32 AM DermPath Lab Pathologist: Angeles Porter MD Specimen: Skin, right posterior leg 12:30 PM SENIOR ENVIRONMENTAL SCIENTIST DERMATOPATHOLOGY LABORATORY Final Diagnosis Specimen A. SKIN, right posterior leg: BENIGN VERRUCOUS KERATOSIS (L82.1) 12:30 PM [facility] DERMATOPATHOLOGY LABORATORY Clinical History R/O SCC vs VV vs MC 12:30 PM [facility] DERMATOPATHOLOGY LABORATORY Gross Description Specimen A: Received is one formalin filled container labeled with the patient's name and designated right posterior leg. The specimen consists of a shave biopsy measuring 5x5x3 mm. Jar 0. 12:30 PM [facility] DERMATOPATHOLOGY LABORATORY Microscopic Description Specimen A. SKIN, right posterior leg: Sections show hyperkeratosis, papillomatosis, hypergranulosis, and acanthosis. These histological findings can be seen in a verruca vulgaris or a seborrheic keratosis. 12:30 PM SENIOR ENVIRONMENTAL SCIENTIST DERMATOPATHOLOGY LABORATORY Disclaimer An external and internal positive and negative controls are appropriate for the histochemical, immunohistochemical and immunofluorescence stain(s) in this case (if any), except where stated explicitly. The performance characteristics of the stain(s) cited in this report were developed and its performance characteristic determined by the Dermatopathology Laboratory at [facility], directed by Dr. Zaria Estrella. These tests need not be, and therefore are not, approved by the [place] Food and Drug Administration. The tests are used for clinical purposes. Billing Codes Specimen Charges Stain Charges 19476 1 5 12:30 PM SENIOR ENVIRONMENTAL SCIENTIST DERMATOPATHOLOGY LABORATORY Embedded Images 5 12:30 PM SENIOR ENVIRONMENTAL SCIENTIST DERMATOPATHOLOGY LABORATORY Pathology/Cytolo gy TISSUE SPECIMEN FROM SKIN / Unknown 12/30/2024 2:01 PM SENIOR ENVIRONMENTAL SCIENTIST 01/01/2025 7:32 AM SENIOR ENVIRONMENTAL SCIENTIST Elizabeth Malone MD LAB - PATHOLOGY/CYTOLOGY ORD ERABLES Final Result DERMATOPATHOLOGY LABORATORY [facility] - Department of Dermatology [address] [phone] from Last 3 Months Insurance [facility]
--- OUTSIDE RECORDS SUMMARY | 2025-03-18 01:41 | XMS_ITS | Encounter Summary ---
Author Organization [facility] Address [address] [place] [address] Care Team Providers Care Leader Assembler Name Role Phone Unavailable Primary Care Provider Unavailabl e Encounter Details Date Type Department Care Team (Late st Contact Info) Description 12/30/2024 Lab Requisition [facility] - DermPath Lab [address] [facility] [place] [address] Elizabeth Malone MD [address] [facility] [address] [place] [address] Social History Tobacco Use Types Packs/Day Years Used Date Smoking Tobacco: Never Assessed Comments Unknown Sex and Gender Information Value Date Recorded Sex Assigned at Not on file Legal Sex Female 5:38 AM TEST ENGINEER NUCLEAR EQUIPMENT Gender Identity Not on file Sexual Orientation Not on file documented as of this encounter Plan of Treatment Not on file documented as of this encounter Procedures Procedure Name Priority Date/Time Associated Diagnosis Comments DERMATOPATHOLOGY Routine 12/30/2024 2:01 PM TEST ENGINEER NUCLEAR EQUIPMENT documented in this encounter Results * DERMATOPATHOLOGY (12/30/2024 2:01 PM TEST ENGINEER NUCLEAR EQUIPMENT) Case Report Dermatopathology Report Case: [id number] Authorizing Provider: Elizabeth Malone MD Collected: 12/30/2024 02:01 PM Ordering Location: [facility] - Received: 01/01/2025 07:32 AM DermPath Lab Pathologist: Angeles Porter MD Specimen: Skin, right posterior leg 5 12:30 PM TEST ENGINEER NUCLEAR EQUIPMENT DERMATOPATHOLOGY LABORATORY Final Diagnosis Specimen A. SKIN, right posterior leg: BENIGN VERRUCOUS KERATOSIS (L82.1) 5 12:30 PM TEST ENGINEER NUCLEAR EQUIPMENT DERMATOPATHOLOGY LABORATORY Clinical History R/O SCC vs VV vs MC 12:30 PM [facility] DERMATOPATHOLOGY LABORATORY Gross Description Specimen A: Received is one formalin filled container labeled with the patient's name and designated right posterior leg. The specimen consists of a shave biopsy measuring 5x5x3 mm. Jar 0. 12:30 PM [facility] DERMATOPATHOLOGY LABORATORY Microscopic Description Specimen A. SKIN, right posterior leg: Sections show hyperkeratosis, papillomatosis, hypergranulosis, and acanthosis. These histological findings can be seen in a verruca vulgaris or a seborrheic keratosis. 12:30 PM [facility] DERMATOPATHOLOGY LABORATORY Disclaimer An external and internal positive and negative controls are appropriate for the histochemical, immunohistochemical and immunofluorescence stain(s) in this case (if any), except where stated explicitly. The performance characteristics of the stain(s) cited in this report were developed and its performance characteristic determined by the Dermatopathology Laboratory at [facility], directed by Dr. Zaria Estrella. These tests need not be, and therefore are not, approved by the [place] Food and Drug Administration. The tests are used for clinical purposes. Billing Codes Specimen Charges Stain Charges 86009 1 12:30 PM [facility] DERMATOPATHOLOGY LABORATORY Embedded Images 12:30 PM [facility] DERMATOPATHOLOGY LABORATORY Pathology/Cytolo gy TISSUE SPECIMEN FROM SKIN / Unknown 12/30/2024 2:01 PM TEST ENGINEER NUCLEAR EQUIPMENT 01/01/2025 7:32 AM TEST ENGINEER NUCLEAR EQUIPMENT us Elizabeth Malone MD LAB - PATHOLOGY/CYTOLOGY ORD ERABLES Final Result DERMATOPATHOLOGY LABORATORY [facility] - Department of Dermatology [address] [place] [address], [facility] [phone] documented in this encounter Visit Diagnoses Not on filedocumented in this encounter
[2025-03-18 09:48] VITALS: BP 104/84; PULSE 77; RESP 16; TEMP 37.3; O2SAT 100; BMI 31.8
[2025-03-18] MEDS: LACTATED RINGERS 1,000 ML 150 ML IV CONT (10:01)
--- NOTE | 2025-03-18 10:02 | WPDANESEPPF ---
Anes - Initial Pre Proc Eval Procedure: Operation Date: 03/18/25 11:00 Proposed Procedures p Esophagogastroduodenoscopy & Colonoscopy - Maximino Delgadillo MD Date/Time: 03/18/25 10:02 Surgeon: Maximino Delgadillo MD Pre Op Diagnosis: Abnormal Weight Loss, Family Hx of neoplasm Patient Data Age: 29 Gender: F Height: 1.6 m Weight: 81.4 kg Last Vital Signs Temp 99.2 F 03/18/25 09:48 Pulse 77 03/18/25 09:48 Resp 16 03/18/25 09:48 BP 104/84 03/18/25 09:48 Pulse Ox 100 03/18/25 09:48 O2 Del Method Room Air 03/18/25 09:48 Allergies Allergy/AdvReac Type Severity Reaction Status Date / Time No Known Allergies Allergy Verified 03/18/25 09:46 Home Medications ?Medication ?Instructions ?Recorded ?Confirmed ?Type albuterol sulfate 2.5 mg/3 mL 2.5 mg (3 mL) inhalation Q4-6H PRN 05/02/24 03/04/25 Rx (0.083 %) solution for nebulization shortness of breath or wheezing #180 mL albuterol sulfate 90 mcg/actuation 2 puff inhalation QID PRN Wheezing 05/02/24 03/04/25 Rx aerosol inhaler #8.5 grams bupropion HCl 150 mg 24 hr tablet, 150 mg PO QAM 12/23/24 03/18/25 History extended release (Wellbutrin XL) chlorophyll copper complex 100 mg 600 mg PO DAILY 12/23/24 03/18/25 History tablet cyclobenzaprine 5 mg tablet 5 mg PO TID PRN muscle spasm 12/23/24 03/04/25 History hydroxyzine HCl 25 mg tablet 25 mg PO DAILY 12/23/24 03/18/25 History loratadine 10 mg tablet (Claritin) 10 mg PO DAILY 12/23/24 03/18/25 History multivitamin 1 tablet PO DAILY 12/23/24 03/18/25 History norethindrone acetate 1.5 1 tablet PO DAILY 12/23/24 03/18/25 History mg-ethinyl estradiol 30 mcg tablet (Microgestin) sertraline 50 mg tablet 50 mg PO DAILY 12/23/24 03/18/25 History trazodone 50 mg tablet 50 mg PO QHS PRN sleep 12/23/24 03/04/25 History Patient hx anesthesia problems: none Family hx anesthesia problems: none Results Review: All pre-operative results and documents have been reviewed as part of the pre-operative evaluation. [facility] Past Medical History Medical History Smoker Family history of Valorie-Galdino syndrome Mom, aunt, grandpa Depression Asthma Seasonal allergic rhinitis Anxiety Surgical History Surgical History [place] teeth extracted Family History Family History Mother Holder syndrome Ovarian cancer Grandparent Carcinoma of colon Holder syndrome Social History Social History Smoking packs per day: 1 Smoking cigarettes per day: 20.0 Smoking status: Current every day smoker Tobacco type: cigarettes Second hand tobacco smoke exposure: No Alcohol intake: current Alcohol use details: Social Substance use: current Substance use type: marijuana Other substance usage details: smoke Lack of Transportation: No Lack of Food: Never True Current Housing: I Have Housing Concerned About Future Housing: No Difficulty Paying Gas/Electric Bills: No Difficulty Paying for Meds: No Currently Unemployed: No Education: Bachelor's Degree Difficulty w/ Childcare or Family Care: No Living arrangements: with family Occupation/Education: occupation Gender identity (if verbalized by the patient): Female Spiritual care concerns: No Anes - Eval Final PreProcedure Day of Procedure 03/18/25 10:02 Patient weight: obese Heart: regular rate and rhythm Lungs: clear to auscultation Airway: Mallampati scale class II Neurological: alert and oriented Last oral intake: >/= 8 hours ASA classification: II Emergent: no Anesthetic plan: proceed Anesthesia type and monitoring: general GIVS and standard monitoring Results Review: All pre-operative results and documents have been reviewed as part of the pre-operative evaluation. Informed Consent: The patient's anesthetic plan and its attendant risks and benefits were discussed with the patient/family/POA. Questions were solicited and answers provided to the satisfaction of the patient/family/POA.
--- NOTE | 2025-03-18 10:14 | PM.HPGS ---
History of Present Illness History of Present Illness Consent: Risks, benefits, and alternatives have been discussed and questions answered. Patient agrees to proceed with procedure. Chief complaint: Abnormal Weight Loss, Family Hx of neoplasm Narrative: Monika Weaver is a 29 year old female here for first egd and colonoscopy. Patient states that her mother was diagnosed with ovarian cancer at age 57 and also has Hx of colon polyps. Her maternal grandfather also has colon cancer and duodenal cancer x2 first diagnosed around age 40. Patient states that she has had an unexplained weight loss of 50 lbs. 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), denies any new gi symptom Review of Systems Review of Systems: All systems reviewed & are unremarkable except as noted in HPI and below PMFSH Past Medical History Medical History (Updated 03/18/25 @ 10:16 by Maximino Delgadillo MD) Holder syndrome Smoker Family history of Valorie-Galdino syndrome Mom, aunt, grandpa Depression Asthma Seasonal allergic rhinitis Anxiety Surgical History Surgical History [place] teeth extracted Family History Family History Mother Holder syndrome Ovarian cancer Grandparent Carcinoma of colon Holder syndrome Social History Social History Smoking packs per day: 1 Smoking cigarettes per day: 20.0 Smoking status: Current every day smoker Tobacco type: cigarettes Second hand tobacco smoke exposure: No Alcohol intake: current Alcohol use details: Social Substance use: current Substance use type: marijuana Other substance usage details: smoke Lack of Transportation: No Lack of Food: Never True Current Housing: I Have Housing Concerned About Future Housing: No Difficulty Paying Gas/Electric Bills: No Difficulty Paying for Meds: No Currently Unemployed: No Education: Bachelor's Degree Difficulty w/ Childcare or Family Care: No Living arrangements: with family Occupation/Education: occupation Gender identity (if verbalized by the patient): Female Spiritual care concerns: No Meds Home Medications and Allergies Home Medications ?Medication ?Instructions ?Recorded ?Confirmed ?Type albuterol sulfate 2.5 mg/3 mL 2.5 mg (3 mL) inhalation Q4-6H PRN 05/02/24 03/04/25 Rx (0.083 %) solution for nebulization shortness of breath or wheezing #180 mL albuterol sulfate 90 mcg/actuation 2 puff inhalation QID PRN Wheezing 05/02/24 03/04/25 Rx aerosol inhaler #8.5 grams bupropion HCl 150 mg 24 hr tablet, 150 mg PO QAM 12/23/24 03/18/25 History extended release (Wellbutrin XL) chlorophyll copper complex 100 mg 600 mg PO DAILY 12/23/24 03/18/25 History tablet cyclobenzaprine 5 mg tablet 5 mg PO TID PRN muscle spasm 12/23/24 03/04/25 History hydroxyzine HCl 25 mg tablet 25 mg PO DAILY 12/23/24 03/18/25 History loratadine 10 mg tablet (Claritin) 10 mg PO DAILY 12/23/24 03/18/25 History multivitamin 1 tablet PO DAILY 12/23/24 03/18/25 History norethindrone acetate 1.5 1 tablet PO DAILY 12/23/24 03/18/25 History mg-ethinyl estradiol 30 mcg tablet (Microgestin) sertraline 50 mg tablet 50 mg PO DAILY 12/23/24 03/18/25 History trazodone 50 mg tablet 50 mg PO QHS PRN sleep 12/23/24 03/04/25 History Allergies Allergy/AdvReac Type Severity Reaction Status Date / Time No Known Allergies Allergy Verified 03/18/25 09:46 Vital Signs Vital Signs - 24 hr 03/18/25 09:48 Temperature 99.2 F Pulse Rate 77 Respiratory Rate 16 Blood Pressure 104/84 Pulse Oximetry 100 Oxygen Delivery Room Air Exam Const: General: comfortable and no acute distress HENMT: Face/Nose/Sinus: Normal nares present Eyes: General: appearance normal, both eyes and all related structures Neck: Neck: no JVD Resp: Auscultation: clear to auscultation bilaterally Cardio: Rate: regular rate Rhythm: regular rhythm GI: Inspection: non-distended GI Palp: Yes Soft to palpation Skin: General skin exam: normal color Neuro: General: gait normal Speech: normal speech Extrem: General: normal to inspection Psych: Mental Status: mental status grossly normal Assessment and Plan Assessment and plan (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
--- NOTE | 2025-03-18 10:50 | SUR.OPER ---
EGD end 1050 Colon start 1058
[2025-03-18 11:03] VITALS: BP 97/50; PULSE 81; RESP 16; O2SAT 100
[2025-03-18 11:13] VITALS: BP 93/48; PULSE 77; RESP 16; O2SAT 100
[2025-03-18 11:23] VITALS: BP 104/56; PULSE 68; RESP 20; O2SAT 100
== END 2025-03-18 11:30 | disposition home or self-care (01) ==
PROVIDERS: PCP Physician Assistant Medical; Referring Provider Nurse Practitioner Family; Visit Provider Internal Medicine Gastroenterology
PROC: 0DJ08ZZ Inspection of Upper Intestinal Tract, Via Natural or Artificial Opening Endoscopic (ICD-10-PCS; CPT 45378; principal; 2025-03-18 11:00)
DX: R63.4 Abnormal weight loss (principal); Z15.09 Genetic susceptibility to other malignant neoplasm; Z80.0 Family history of malignant neoplasm of digestive organs; F17.210 Nicotine dependence, cigarettes, uncomplicated; F12.90 Cannabis use, unspecified, uncomplicated; E66.9 Obesity, unspecified; Z68.31 Body mass index [BMI] 31.0-31.9, adult
CPT/HCPCS: 45378; 43239; 88305; J7120